=== PATIENT | male | born 1965 | race Caucasian/White ===

== ENCOUNTER 2021-11-29 22:01 | Emergency (ER) | payer SELFPAY ==
--- OUTSIDE RECORDS SUMMARY | 2021-11-29 22:48 | XMS REPORT | Continuity of Care Document ---
:1965 Author Organization [facility] t Address [facility]3 Jose Mendez [address] [place] [address] Care Team Providers Name Role Phone Mindi Campbell Attending Clinician Unavailable Physician, Primary or Family Admitting Clinician Unavailabl e Payers Payer Name Policy Type Policy Number Effective Date Expiration Date S ource Problems This patient has no known problems. Allergies, Adverse Reactions, Alerts Allergy Allergy Status Severity Reaction(s) Onset Inactive Treating Comm ents Source Name Type Date Date Clinician No Known DA Active U [facility]02 [facility] s 00:00: [address] No Known DA Active U 0 [facility] 02-05 [facility] s 00:00: [address] No Known DA Active U [facility] 04-08 [facility] s 00:00: [address] No Known DA Active U [facility] 04-18 [facility] s 00:00: [address] Medications This patient has no known medications. Procedures This patient has no known procedures. Encounters Start End Encounter Admission Attending Care Care Encounter Source Date/Time Date/Time Type Type Clinicians Facility Department ID 2020-09-07 Inpatient [facility] ER [id number] [facility] 02:31:00 [facility] 2020-04-04 Inpatient [facility] ER [id number] [facility] 15:49:00 [id number] [facility] 2020-03-16 Inpatient [facility] ER [id number] [facility] 15:17:00 [facility] 2020-03-02 Inpatient [facility] [id number] [facility] 17:46:00 [id number] [facility] 2020-02-06 Inpatient [facility] [id number] [facility] 11:02:00 [facility] 2019-10-24 Inpatient [facility] [id number] [facility] 17:11:00 [id number] [facility] 2019-10-06 Inpatient [facility] [id number] [facility] 05:44:00 [facility] 2021-11-27 2021-11-27 Emergency EM Adrian, [facility] [id number] [facility] 01:14:00 02:15:00 [place] [id number] [facility] 2021-11-27 2021-11-27 Emergency EM Adrian, [facility] [id number] [facility] 01:14:00 02:15:00 [place] 95 [facility] Results Test Description Test Time Test Comments Results Result [facility] e Comments - XR FINGER(S) 2+V 2021-11-27 LT 01:58:00 [facility] : 1965 Sex: M Patient Name: YESENIA BECKFORD Unit No: [id number] EXAMS: CPT CODE: [id number] XR FINGER(S) 2+[place] [id number] Reason: HAMMER DISTAL FINGERTIP LOCATION: H43 EXAM: - XR FINGER(S) 2+V LT HISTORY: HAMMER DISTAL FINGERTIP TECHNIQUE: Routine 3 view left second finger COMPARISON: None. FINDINGS: Nondisplaced fracture involves the dorsal margin of the tuft of the second distal phalanx. Joint spaces within normal limits. Mild associated soft tissue swelling. Bone marrow mineralization is homogeneous. IMPRESSION: Nondisplaced fracture along the dorsal margin of the tuft of the second distal phalanx. at 0158 Reported and signed by: Trinidad Dawn MD CC: Rena Campbell DO Technologist: Kimberly Barber RT Trscrpt Dt/ ([id number])[email or web address] Orig Print D/T: S: 11/27/2021 (0201) [facility] NAME: YESENIA BECKFORD [address]: [place] [address] : 1965 AGE: 56 SEX: M LOC: [facility] PHONE #: [phone] EXAM DATE: 11/27/2021 STATUS: REG ER FAX #: RAD NO: DC Dt: PAGE 1 Signed Report UA RFLX MICROSCOPIC CULTURE 2020-09-07 08:33:00 Test Item Value Reference Range Interpretation Comme nts UA COLOR (test code = COLU) Light-Yellow YELLOW UA APPEARANCE (test code = APPU) CLEAR CLEAR UA GLUCOSE DIPSTICK (test code = DGLUU) > 1000 mg/dL NEGATIVE A UA BILIRUBIN DIPSTICK (test code = BILU) NEGATIVE NEGATIVE UA KETONE DIPSTICK (test code = KETU) TRACE mg/dL NEGATIVE UA SPECIFIC GRAVITY (test code = SGU) 1.032 1.001-1.035 N UA BLOOD DIPSTICK (test code = LELO) NEGATIVE UA PH DIPSTICK (test code = JENNIE) 5.0 5.5-7.0 L UA PROTEIN DIPSTICK (test code = PROU) NEGATIVE mg/dL NEGATIVE UA UROBILINOGEN DIPSTICK (test code = URO) NORMAL mg/dL NORMAL UA NITRITE DIPSTICK (test code = CECILIA) NEGATIVE NEGATIVE UA LEUKOCYTE ESTERASE DIPSTICK (test code = LEUU) NEGATIVE NEGA TIVE UA COMMENT (test code = COMU) VOLUME 10-12 ML URINE SPECIMEN DESCRIPTION (test code = UASPEC) Clean Catch UA WBC (test code = WBCU) < 10 #/HPF 0-10 UA SQUAMOUS CELLS (test code = SQU) 0 - 20 #/LPF <100 UA CULTURE NEEDED? (test code = UACULT) Criteria not met Indication for culture: RiskForSepsis-no oth srcURINE SOURCE: Clean CatchUA RFLX MICROSCOPIC [id number] 08:30:00 Test Item Value Reference Range Interpretation Comments UA COLOR (test code = COLU) Light-Yellow YELLOW UA APPEARANCE (test code = CLEAR CLEAR APPU) UA GLUCOSE DIPSTICK (test > 1000 mg/dL NEGATIVE A code = DGLUU) UA BILIRUBIN DIPSTICK (test NEGATIVE NEGATIVE code = BILU) UA KETONE DIPSTICK (test TRACE mg/dL NEGATIVE code = KETU) UA SPECIFIC GRAVITY (test 1.032 1.001-1.035 N code = SGU) UA BLOOD DIPSTICK (test code NEGATIVE = LELO) UA PH DIPSTICK (test code = 5.0 5.5-7.0 L JENNIE) UA PROTEIN DIPSTICK (test NEGATIVE mg/dL NEGATIVE code = PROU) UA UROBILINOGEN DIPSTICK NORMAL mg/dL NORMAL (test code = URO) UA NITRITE DIPSTICK (test NEGATIVE NEGATIVE code = CECILIA) UA LEUKOCYTE ESTERASE NEGATIVE NEGATIVE DIPSTICK (test code = LEUU) UA COMMENT (test code = COMU) URINE SPECIMEN DESCRIPTION Clean Catch (test code = UASPEC) UA WBC (test code = WBCU) < 10 #/HPF 0-10 UA SQUAMOUS CELLS (test code 0 - 20 #/LPF <100 = SQU) UA CULTURE NEEDED? 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 Coronavirus 2019 nCoV [id number] 08:07:00 Test Item Value Reference Range Interpretation Comments Coronavirus 2019 nCoV Negative Negative ID NOW COVID-19 assay Bedside (test code = perform ed on the ID NOW [id number]) Instrument shelley rapid molecular in vi tro diagnostic test utilizing aniso thermal nucleic acid amplification t echnology intendedfor the qualitative det ection of nucleic acid fr om dmwFFCM-DvC-3 v iral RNA in direct nasal , nasopharyngeal orthroat swabs and nasal , nasopharyngeal or throat swabseluted in viral transport media from individuals who aresuspected of COVID-19 by their health care provider. Resu lts are for the identif ication of SARS-CoV-2 R NA.For Use Under an Em ergency Use Authorizati on (EUA) Only Negative r esults do not preclude SA RS-CoV-2 infection andsh ould not be used as the sole basis for patie nt managementdecis ions. Negative result s must be combined with clinicalobserva tions, patient history , and epidemiological informati on. DRUG OF ABUSE SCREEN [id number] 07:41:00 Test Item Value Reference Interpretation Comments Range UR COCAINE (test NEGATIVE NEGATIVE code = COCAU) UR MDMA (test code = NEGATIVE NEGATIVE MDMAQLU) UR CANNABINOIDS NEGATIVE NEGATIVE (test code = CANU) UR AMPHETAMINE (test NEGATIVE NEGATIVE code = AMPHU) UR BARBITURATE QUAL NEGATIVE NEGATIVE (test code = BARBQLU) UR BENZODIAZEPINE NEGATIVE NEGATIVE (test code = BENZU) UR OPIATES QUAL NEGATIVE NEGATIVE (test code = OPIAQLU) UR PHENCYCLIDINE NEGATIVE NEGATIVE Urine Drug Abuse Screen (PCP) (test code = provides preliminary PHENCU) results thatmay be confirmed by viki frank methods (i.e., GC[facility]MS) at [facility]. Results of scre en may not be usedin crimi nal justice, job performance or professionalcre dential review, or infa nt custody issues. Negativ e [place] Level ng/ml ------- ----- Cocaine 300 Methamp hetamine (Ecstacy) 500 Cannabinoids (THC) 50 Amphetamine 1000 Barbiturate s 200 Benzodia zepines 200 Opiat es 300 Ph encyclidine (PCP) 25 - XR CHEST 1 [id number] 05:33:00 [facility] : 1965 Sex: M Patient Name: YESENIA BECKFORD Unit No: [id number] EXAMS: CPT CODE: [id number] XR CHEST 1 V [id number] Reason: chest pain PROCEDURE INFORMATION: Exam: XR Chest, 1 View Exam date and time: 09/07/2020 4:06 AM Age: 54 years old Clinical indication: Chest pain TECHNIQUE: Imaging protocol: XRof the chest Views: 1 view. COMPARISON: CR XR CHEST 1 V 03/02/2020 6:19 PM FINDINGS: Lungs: Unremarkable. No consolidation. Pleural space: Unremarkable. No pleural effusion. No pneumothorax. Heart/Mediastinum: Unremarkable. No cardiomegaly.Bones/joints: Unremarkable. IMPRESSION: No acute findings. INTERNAL CODING PURPOSES ONLY RESULT CODE: CVR ElectronicallySigned by Bebe Hussein MD on 09/07/2020 at 0533 Reported and signed by: Bebe Hussein MD CC: Ramesh Ceja MD Technologist: Bernard Dawn RT Trscrpt Dt/ ([id number])[email or web address].VR Orig Print D/T: S: 09/07/2020 (0534) [facility] NAME: YESENIA BECKFORD [address]:[place] [address] : 1965 AGE: 54 SEX: M LOC: [facility] PHONE #: [phone] EXAM DATE: 09/07/2020 STATUS: REG ER FAX #: RAD NO: DC Dt: PAGE 1 Signed ReportBASI METABOLIC [id number] 04:23:00 Test Item Value Reference Range Interpretation Comments SODIUM (test code = 131 MMOL/L 133-145 L NA) POTASSIUM (test code = 3.6 MMOL/L 3.6-5.2 N K) CHLORIDE (test code = 97 MMOL/L 100-108 L CL) CARBON DIOXIDE (test 22 MMOL/L 22-32 N code = CO2) GLUCOSE (test code = 357 MG/DL 65-99 H Results of this assay GLU) method may be f alsely depressed orele vated if patient is t aking sulfasalazine. BLOOD UREA NITROGEN 13 MG/DL 6-20 N (test code = BUN) GLOMERULAR FILTRATION 86 56-130 N Report ing units: RATE (test code = GFR) mL/mi n/1.73m\S\2 (Modified MDRD Formula) CREATININE (test code 0.92 MG/DL 0.60-1.00 N = CREAT) CALCIUM (test code = 9.5 MG/DL 8.7-10.5 N CA) HEPATIC FUNCTION [id number] 04:23:00 Test Item Value Reference Range Interpretation Comments TOTAL PROTEIN (test 7.9 G/DL 6.4-8.2 N code = PROT) ALBUMIN (test code = 4.3 G/DL 3.4-5.0 N ALB) GLOBULIN (test code = 3.6 G/DL 1.5-3.8 N GLOB) ALBUMIN/GLOBULIN RATIO 1.2 1.1-2.2 N (test code = A/G) BILIRUBIN TOTAL (test 0.6 MG/DL 0.0-1.0 N code = BILT) BILIRUBIN DIRECT (test 0.1 MG/DL 0.0-0.3 N code = BILD) BILIRUBIN INDIRECT 0.5 MG/DL 0.0-0.7 N (test code = BILIND) SGOT/AST (test code = 14 Units/L 15-37 L Result s of this assay AST) method may be f alsely depressed orele vated if patient is t aking sulfasalazine. SGPT/ALT (test code = 44 Units/L 30-65 N Result s of this assay ALT) method may be f alsely depressed orele vated if patient is t aking sulfasalazine. ALKALINE PHOSPHATASE 82 Units/L 50-136 N TOTAL (test code = ALKP) [id number] 04:23:00 Test Item Value Reference Range Interpretation Comments LIPASE (test code = LIP) 183 Units/L 73-393 N [id number] 04:23:00 Test Item Value Reference Range Interpretation Comments MAGNESIUM (test code = MAG) 1.9 MG/DL 1.8-2.4 N THYROID STIMULATING [id number] 04:23:00 Test Item Value Reference Range Interpretation Comments THYROID STIMULATING 5.20 0.42-5.47 N Micro-In ternational HORMONE (test code = TSH) Un its/LResults of this assay method ma y be falsely depress ed orelevated if p atient is taking high doses of Biotin. NT PRO-BRAIN NATRIURETIC [id number] 04:23:00 Test Item Value Reference Range Interpretation Comments NT PRO-BRAIN 40 PG/ML 0-125 N Results of this assay NATRIURETIC PEPTI (test meth od may be falsely code = PROBNP) depressed ore levated if patient is t aking high doses of B iotin. CPK-MB [id number] 04:23:00 Test Item Value Reference Range Interpretation Comments CK (test code = 239 Units/L 39-308 N CKT) CKMB (test code = 2.8 NG/ML 0.0-3.6 N CKMB sugge stive of CKMBT) non-AMI; MB Ind ex is not reported. [id number] 04:23:00 Test Item Value Reference Range Interpretation Comments TROPONIN-I (test < 0.04 NG/ML 0.00-0.06 N - The use of serial code = TROPI) sampling and t esting protocol is a recommended pra ctice.- An elevated tro ponin level alone is often not sufficient fo r diagnosis of my ocardial infarction.Resu lts of this assay meth od may be falsely depress ed orelevated if p atient is taking high dos es of Biotin. [id number] 04:23:00 Test Item Value Reference Range Interpretation Comments ALCOHOL (test code = 95 MG/DL 0-10 H 0 - 10: Should be ALC) interpreted as NEGATIVE. 11 - 50: None to mild euphoria. 51 - 100: Mild influence on vision and dark adapta tion. > 80: Legal intoxication; D epression of BEAN SNAPPER; Increasing degr ee of poisoning. > 400: Fatalities repo rted. Results are for medical purposes only a nd not forlegal or emp loyment evaluative purp oses. CBC W/AUTO [id number] 03:53:00 Test Item Value Reference Range Interpretation Comments WHITE BLOOD CELL (test code = 5.93 x10 3/uL 4.80-10.80 N WBC) RED BLOOD CELL (test code = 5.21 x10 6/uL 4.7-6.1 N RBC) HEMOGLOBIN (test code = HGB) 17.0 G/DL 14.0-17.0 N HEMATOCRIT (test code = HCT) 46.9 % 42-52 N MEAN CELL VOLUME (test code = 90.0 FL 80-94 N MCV) MEAN CELL HGB (test code = MCH) 32.6 PG 27-31 H MEAN CELL HGB CONCENTRATION 36.2 G/DL 33-37 N (test code = MCHC) RED CELL DISTRIBUTION WIDTH 11.9 % 11.5-14.5 N (test code = RDW) PLATELET COUNT (test code = 287 x10 3/uL 150-450 N PLT) MEAN PLATELET VOLUME (test code 9.3 FL 7.4-10.4 N = MPV) NEUTROPHIL % (test code = NT%) 42.6 % 42-86 N IMMATURE GRANULOCYTE % (test 0.3 % 0.0-2.0 N code = IG%) LYMPHOCYTE % (test code = LY%) 40.0 % 24-44 N MONOCYTE % (test code = MO%) 7.8 % 0.0-4.0 H EOSINOPHIL % (test code = EO%) 9.1 % 0.0-2.7 H BASOPHIL % (test code = BA%) 0.2 % 0.0-0.5 N NUCLEATED RBC % (test code = 0.0 % 0.0-0.0 N NRBC%) NEUTROPHIL # (test code = NT#) 2.53 x10 3/uL 1.8-7.7 N IMMATURE GRANULOCYTE # (test 0.02 x10 3/uL 0.00-0.03 N code = IG#) LYMPHOCYTE # (test code = LY#) 2.37 x10 3/uL 1.0-4.8 N MONOCYTE # (test code = MO#) 0.46 x10 3/uL 0.0-0.8 N EOSINOPHIL # (test code = EO#) 0.54 x10 3/uL 0.0-0.5 H BASOPHIL # (test code = BA#) 0.01 x10 3/uL 0.0-0.2 N NUCLEATED RBC # (test code = 0.0 X10 3/uL 0.0-0.2 N NRBC#) [id number] 03:34:00 Test Item Value Reference Range Interpretation Comments GLUBED (test code = 346 MG/DL 65-99 H 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 DRUG OF ABUSE SCREEN [id number] 21:43:00 Test Item Value Reference Interpretation Comments Range UR COCAINE (test NEGATIVE NEGATIVE code = COCAU) UR MDMA (test code = NEGATIVE NEGATIVE MDMAQLU) UR CANNABINOIDS NEGATIVE NEGATIVE (test code = CANU) UR AMPHETAMINE (test NEGATIVE NEGATIVE code = AMPHU) UR BARBITURATE QUAL NEGATIVE NEGATIVE (test code = BARBQLU) UR BENZODIAZEPINE NEGATIVE NEGATIVE (test code = BENZU) UR OPIATES QUAL NEGATIVE NEGATIVE (test code = OPIAQLU) UR PHENCYCLIDINE NEGATIVE NEGATIVE Urine Drug Abuse Screen (PCP) (test code = provides preliminary PHENCU) results thatmay be confirmed by viki frank methods (i.e., GC/MS) at [facility]. Results of scre en may not be usedin crimi nal justice, job performance or professionalcre dential review, or infa nt custody issues. Negativ e [place] Level ng/ml ------- ----- Cocaine 300 Methamp hetamine (Ecstacy) 500 Cannabinoids (THC) 50 Amphetamine 1000 Barbiturate s 200 Benzodia zepines 200 Opiat es 300 Ph encyclidine (PCP) 25 [id number] 21:34:00 Test Item Value Reference Range Interpretation Comments AMMONIA (test code = 24 UMOL/L 11-35 N Results of this assay AMM) method may be f alsely depressed orele vated if patient is taki ng sulfasalazine. BETA [id number] 20:37:00 Test Item Value Reference Range Interpretation Comments BETA HYDROXYBUTYRATE (test code = 0.33 mmol/L 0.02-0.27 H BETHYD) - CT HEAD/BRAIN W/O [id number] 20:25:00 Patient Name: YESENIA BECKFORD Unit No: [id number] EXAMS: CPT CODE: [id number] CT HEAD/BRAIN W/O CONT [id number] Reason: aguilar - CT HEAD/BRAIN W/O CONT 03/02/2020 7:35 PM Indication: Headache COMPARISON: 10/24/2019 FINDINGS: Noncontrast scanning shows no acute process nor adverse change. Normal ventricles. No intracranial hemorrhage. Stable right mastoid sinus sclerosis and opacified air cells with partial air-fluid level. Going back to the anal 1216 study, the right mastoids look the same.Impression: No acute disease nor adverse change. at 2024 Reported and signed by: Lopez Fraga MD CC: Adarsh Enriquez MD Technologist: Sarita Marcelo RT PRN Trscrpt Dt/ (2024)[email or web address] Orig Print D/T: S: 03/02/2020 (2027) CTDI: DLP: [facility] NAME: YESENIA BECKFORD [address]: [place] [address] : 1965 AGE: 54 SEX: M LOC: [facility] PHONE #: [phone] EXAM DATE: 03/02/2020 STATUS: REG ER FAX #: RAD NO: DC Dt: PAGE 1 Signed ReportCOMPREHENSIVE METABOLIC PANEL 2020-03-02 20:14:00 Test Item Value Reference Range Interpretation Comments SODIUM (test code = 137 MMOL/L 133-145 N NA) POTASSIUM (test code = 3.9 MMOL/L 3.6-5.2 N K) CHLORIDE (test code = 99 MMOL/L 100-108 L CL) CARBON DIOXIDE (test 27 MMOL/L 22-32 N code = CO2) GLUCOSE (test code = 192 MG/DL 65-99 H Results of this assay GLU) method may be f alsely depressed orele vated if patient is t aking sulfasalazine. BLOOD UREA NITROGEN 12 MG/DL 6-20 N (test code = BUN) GLOMERULAR FILTRATION 82 56-130 N Report ing units: RATE (test code = GFR) mL/mi n/1.73m\S\2 (Modified MDRD Formula) CREATININE (test code 0.96 MG/DL 0.60-1.00 N = CREAT) TOTAL PROTEIN (test 7.6 G/DL 6.4-8.2 N code = PROT) ALBUMIN (test code = 4.2 G/DL 3.4-5.0 N ALB) GLOBULIN (test code = 3.4 G/DL 1.5-3.8 N GLOB) ALBUMIN/GLOBULIN RATIO 1.2 1.1-2.2 N (test code = A/G) CALCIUM (test code = 9.3 MG/DL 8.7-10.5 N CA) BILIRUBIN TOTAL (test 0.8 MG/DL 0.0-1.0 N code = BILT) SGOT/AST (test code = 20 Units/L 15-37 N Result s of this assay AST) method may be f alsely depressed orele vated if patient is t aking sulfasalazine. SGPT/ALT (test code = 39 Units/L 30-65 N Result s of this assay ALT) method may be f alsely depressed orele vated if patient is t aking sulfasalazine. ALKALINE PHOSPHATASE 76 Units/L 50-136 N TOTAL (test code = ALKP) [id number] 20:14:00 Test Item Value Reference Range Interpretation Comments PHOSPHOROUS (test code = PHOS) 2.9 MG/DL 2.5-4.9 N [id number] 20:14:00 Test Item Value Reference Range Interpretation Comments MAGNESIUM (test code = MAG) 2.0 MG/DL 1.8-2.4 N [id number] 20:14:00 Test Item Value Reference Range Interpretation Comments TROPONIN-I (test < 0.04 NG/ML 0.00-0.06 N - The use of serial code = TROPI) sampling and t esting protocol is a recommended pra ctice.- An elevated tro ponin level alone is often not sufficient fo r diagnosis of my ocardial infarction.Resu lts of this assay meth od may be falsely depress ed orelevated if p atient is taking high dos es of Biotin. [id number] 20:14:00 Test Item Value Reference Range Interpretation Comments ALCOHOL (test code = < 3 MG/DL 0-10 N 0 - 10: Should be ALC) interpreted as NEGATIVE. 11 - 50: None to mild euphoria. 51 - 100: Mild influence on vision and dark adapta tion. > 80: Legal intoxication; D epression of BEAN SNAPPER; Increasing degr ee of poisoning. > 400: Fatalities repo rted. Results are for medical purposes only a nd not forlegal or emp loyment evaluative purp oses. CBC W/AUTO [id number] 19:01:00 Test Item Value Reference Range Interpretation Comments WHITE BLOOD CELL (test code = 5.48 x10 3/uL 4.80-10.80 N WBC) RED BLOOD CELL (test code = 5.12 x10 6/uL 4.7-6.1 N RBC) HEMOGLOBIN (test code = HGB) 16.4 G/DL 14.0-17.0 N HEMATOCRIT (test code = HCT) 45.1 % 42-52 N MEAN CELL VOLUME (test code = 88.1 FL 80-94 N MCV) MEAN CELL HGB (test code = MCH) 32.0 PG 27-31 H MEAN CELL HGB CONCENTRATION 36.4 G/DL 33-37 N (test code = MCHC) RED CELL DISTRIBUTION WIDTH 12.6 % 11.5-14.5 N (test code = RDW) PLATELET COUNT (test code = 232 x10 3/uL 150-450 N PLT) MEAN PLATELET VOLUME (test code 9.2 FL 7.4-10.4 N = MPV) NEUTROPHIL % (test code = NT%) 73.6 % 42-86 N IMMATURE GRANULOCYTE % (test 0.4 % 0.0-2.0 N code = IG%) LYMPHOCYTE % (test code = LY%) 8.4 % 24-44 L MONOCYTE % (test code = MO%) 13.9 % 0.0-4.0 H EOSINOPHIL % (test code = EO%) 3.3 % 0.0-2.7 H BASOPHIL % (test code = BA%) 0.4 % 0.0-0.5 N NUCLEATED RBC % (test code = 0.0 % 0.0-0.0 N NRBC%) NEUTROPHIL # (test code = NT#) 4.04 x10 3/uL 1.8-7.7 N IMMATURE GRANULOCYTE # (test 0.02 x10 3/uL 0.00-0.03 N code = IG#) LYMPHOCYTE # (test code = LY#) 0.46 x10 3/uL 1.0-4.8 L MONOCYTE # (test code = MO#) 0.76 x10 3/uL 0.0-0.8 N EOSINOPHIL # (test code = EO#) 0.18 x10 3/uL 0.0-0.5 N BASOPHIL # (test code = BA#) 0.02 x10 3/uL 0.0-0.2 N NUCLEATED RBC # (test code = 0.0 X10 3/uL 0.0-0.2 N NRBC#) - XR CHEST 1 [id number] 18:53:00 Patient Name: YESENIA BECKFORD Unit No: [id number] EXAMS: CPT CODE: [id number] XR CHEST 1 V [id number] Reason: weakness - XR CHEST 1 V 03/02/2020 6:17 PM Indication: Weakness FINDINGS: Comparison is made to the films of 06/07/2018. There has been no significant radiographic change. The heart, lung dempsey and pleura show no change since the prior examination. Cervical fusion. IMPRESSION: Stable chest. 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 COMPREHENSIVE METABOLIC [id number] 18:26:00 Test Item Value Reference Range Interpretation Comments SODIUM (test code = 138 MMOL/L 133-145 N NA) POTASSIUM (test code = 4.0 MMOL/L 3.6-5.2 N K) CHLORIDE (test code = 104 MMOL/L 100-108 N CL) CARBON DIOXIDE (test 26 MMOL/L 22-32 N code = CO2) GLUCOSE (test code = 116 MG/DL 65-99 H Results of this assay GLU) method may be f alsely depressed orele vated if patient is t aking sulfasalazine. BLOOD UREA NITROGEN 16 MG/DL 6-20 N (test code = BUN) GLOMERULAR FILTRATION 93 56-130 N Report ing units: RATE (test code = GFR) mL/mi n/1.73m\S\2 (Modified MDRD Formula) CREATININE (test code 0.87 MG/DL 0.60-1.00 N = CREAT) TOTAL PROTEIN (test 7.5 G/DL 6.4-8.2 N code = PROT) ALBUMIN (test code = 4.2 G/DL 3.4-5.0 N ALB) GLOBULIN (test code = 3.3 G/DL 1.5-3.8 N GLOB) ALBUMIN/GLOBULIN RATIO 1.3 1.1-2.2 N (test code = A/G) CALCIUM (test code = 9.1 MG/DL 8.7-10.5 N CA) BILIRUBIN TOTAL (test 1.0 MG/DL 0.0-1.0 N code = BILT) SGOT/AST (test code = 19 Units/L 15-37 N Result s of this assay AST) method may be f alsely depressed orele vated if patient is t aking sulfasalazine. SGPT/ALT (test code = 35 Units/L 30-65 N Result s of this assay ALT) method may be f alsely depressed orele vated if patient is t aking sulfasalazine. ALKALINE PHOSPHATASE 64 Units/L 50-136 N TOTAL (test code = ALKP) [id number] 18:22:00 Test Item Value Reference Range Interpretation Comments AMMONIA (test code = 39 UMOL/L 11-35 H Results of this assay AMM) method may be f alsely depressed orele vated if patient is taki ng sulfasalazine. - CT HEAD/BRAIN W/O [id number] 18:19:00 Patient Name: YESENIA BECKFORD Unit No: [id number] EXAMS: CPT CODE: [id number] CT HEAD/BRAIN W/O CONT [id number] Reason: Headache TECHNIQUE: Contiguous 5 mm images were obtained throughbrain. No contrast was given. FINDINGS: The ventricles are normal in size and configuration. There is no intracranial hemorrhage, mass effect or abnormal extra-axial fluid collection. There are no focal attenuation abnormalities within the brain parenchyma. Bone targeted windows are unremarkable. IMPRESSION: Negative at 1819 Reported and signed by: Marco Mora MD CC: Maximiliano Jimenez DO Technologist: Mc Mims RT Trscrpt Dt/ (1818)[email or web address].DKW Orig Print D/T: S: 10/24/2019 (1821) CTDI: DLP: [facility] NAME: YESENIA BECKFORD [address] PHYS: [place] [address] : 1965 AGE: 53 SEX: M LOC: [facility]ARD PHONE#: [phone] EXAM DATE: 10/24/2019 STATUS: REG ER FAX #: RAD NO: DC Dt: PAGE 1 Signed ReportCBC W/AUTO [id number] 18:10:00 Test Item Value Reference Range Interpretation Comments WHITE BLOOD CELL (test code = 6.84 x10 3/uL 4.80-10.80 N WBC) RED BLOOD CELL (test code = 4.99 x10 6/uL 4.7-6.1 N RBC) HEMOGLOBIN (test code = HGB) 15.8 G/DL 14.0-17.0 N HEMATOCRIT (test code = HCT) 44.3 % 42-52 N MEAN CELL VOLUME (test code = 88.8 FL 80-94 N MCV) MEAN CELL HGB (test code = MCH) 31.7 PG 27-31 H MEAN CELL HGB CONCENTRATION 35.7 G/DL 33-37 N (test code = MCHC) RED CELL DISTRIBUTION WIDTH 12.6 % 11.5-14.5 N (test code = RDW) PLATELET COUNT (test code = 289 x10 3/uL 150-450 N PLT) MEAN PLATELET VOLUME (test code 8.6 FL 7.4-10.4 N = MPV) NEUTROPHIL % (test code = NT%) 59.3 % 42-86 N IMMATURE GRANULOCYTE % (test 0.1 % 0.0-2.0 N code = IG%) LYMPHOCYTE % (test code = LY%) 25.7 % 24-44 N MONOCYTE % (test code = MO%) 7.9 % 0.0-4.0 H EOSINOPHIL % (test code = EO%) 6.6 % 0.0-2.7 H BASOPHIL % (test code = BA%) 0.4 % 0.0-0.5 N NUCLEATED RBC % (test code = 0.0 % 0.0-0.0 N NRBC%) NEUTROPHIL # (test code = NT#) 4.05 x10 3/uL 1.8-7.7 N IMMATURE GRANULOCYTE # (test 0.01 x10 3/uL 0.00-0.03 N code = IG#) LYMPHOCYTE # (test code = LY#) 1.76 x10 3/uL 1.0-4.8 N MONOCYTE # (test code = MO#) 0.54 x10 3/uL 0.0-0.8 N EOSINOPHIL # (test code = EO#) 0.45 x10 3/uL 0.0-0.5 N BASOPHIL # (test code = BA#) 0.03 x10 3/uL 0.0-0.2 N NUCLEATED RBC # (test code = 0.0 X10 3/uL 0.0-0.2 N NRBC#) [id number] 18:08:00 Test Item Value Reference Range Interpretation Comments GLUBED (test code = 106 MG/DL 65-99 H 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 - XR FINGER(S) 2+V [id number] 06:53:00 Patient Name: YESENIA BECKFORD Unit No: [id number] EXAMS: CPT CODE: [id number] XR FINGER(S) 2+[place] [address] Reason: pain, injury PROCEDURE INFORMATION: Exam: XR Left Finger(s) Exam date and time: 10/06/2019 6:19 AM Age: 53 years old Clinical indication: Pain; Finger(s); Left; Additional info: Pain, injuryTECHNIQUE: Imaging protocol: XR Left fingers. Views: Minimum 2 views. COMPARISON: CR XR HAND 3+V LT 02/27/2016 7:10 AM FINDINGS: Bones/joints: Sm all nondisplaced fracture at the base of the 1st proximal phalanx medially. Soft tissues: No acute findings. IMPRESSION: Small nondisplaced fracture at the base of the 1st proximal phalanx medially. Suggesting ulnar collateral ligament avulsion. Consider orthopedic hand consult at 0653 Reported and signed by: Vinicius Light CC: Shayne Nelson DO Technologist: Kym Shrestha RT Trscrpt Dt/ (0653)[email or web address].[email or web address] Rouse Print D/T: S: 10/06/2019 (0653) [facility] NAME: YESENIA BECKFORD [address] [facility] PHYS: [email or web address] [place] [address] : 1965 AGE:53 SEX: M LOC: TiffanyPORFIRIOR PHONE #: [phone] EXAM DATE: 10/06/2019 STATUS: DEP ER FAX #: RAD NO: DC Dt: PAGE 1 Signed Report- XR L-SPINE 2/3 VIEWS 2019-10-06 06:45:00 Patient Name: YESENIA BECKFORD Unit No: [id number] EXAMS: CPT CODE: [id number] XR L-SPINE 2/3 VIEWS 70115 Reason: pain PROCEDURE INFORMATION: Exam: XR Lumbosacral Spine, 2 or 3 Views Exam date and time: 10/06/2019 6:19 AM Age: 53 years old Clinical indication: Low back pain TECHNIQUE: Imaging protocol: XR of the lumbosacral spine, 2 or 3 views. COMPARISON: No relevant prior studies available. FINDINGS: Vertebrae: No acute fracture. Soft tissues: No acute abnormality. IMPRESSION: Unremarkable radiograph. 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 UA RFLX MICROSCOPIC [id number] 07:43:00 Test Item Value Reference Range Interpretation Comments UA COLOR (test code = COLU) Colorless YELLOW UA APPEARANCE (test code = CLEAR CLEAR APPU) UA GLUCOSE DIPSTICK (test > 1000 mg/dL NEGATIVE A code = DGLUU) UA BILIRUBIN DIPSTICK (test NEGATIVE NEGATIVE code = BILU) UA KETONE DIPSTICK (test NEGATIVE mg/dL NEGATIVE code = KETU) UA SPECIFIC GRAVITY (test 1.027 1.001-1.035 N code = SGU) UA BLOOD DIPSTICK (test code NEGATIVE = LELO) UA PH DIPSTICK (test code = 6.5 5.5-7.0 N JENNIE) UA PROTEIN DIPSTICK (test NEGATIVE mg/dL NEGATIVE code = PROU) UA UROBILINOGEN DIPSTICK NORMAL mg/dL NORMAL (test code = URO) UA NITRITE DIPSTICK (test NEGATIVE NEGATIVE code = CECILIA) UA LEUKOCYTE ESTERASE NEGATIVE NEGATIVE DIPSTICK (test code = LEUU) UA COMMENT (test code = VOLUME 10-12 ML COMU) URINE SPECIMEN DESCRIPTION Clean Catch (test code = UASPEC) UA WBC (test code = WBCU) < 10 #/HPF 0-10 UA SQUAMOUS CELLS (test code 0 - 20 #/LPF <100 = SQU) UA CULTURE NEEDED? (test Criteria not met code = UACULT) Indication for culture: Dysuria/FrequencyURINE SOURCE: Clean CatchBASIC METABOLIC [id number] 07:24:00 Test Item Value Reference Range Interpretation Comments SODIUM (test code = 140 MMOL/L 133-145 N NA) POTASSIUM (test code = 4.1 MMOL/L 3.6-5.2 N K) CHLORIDE (test code = 106 MMOL/L 100-108 N CL) CARBON DIOXIDE (test 25 MMOL/L 22-32 N code = CO2) GLUCOSE (test code = 283 MG/DL 65-99 H Results of this assay GLU) method may be f alsely depressed orele vated if patient is t aking sulfasalazine. BLOOD UREA NITROGEN 19 MG/DL 6-20 N (test code = BUN) GLOMERULAR FILTRATION 99 56-130 N Report ing units: RATE (test code = GFR) mL/mi n/1.73m\S\2 (Modified MDRD Formula) CREATININE (test code 0.82 MG/DL 0.60-1.00 N = CREAT) CALCIUM (test code = 9.6 MG/DL 8.7-10.5 N CA) HEPATIC FUNCTION [id number] 07:24:00 Test Item Value Reference Range Interpretation Comments TOTAL PROTEIN (test 7.2 G/DL 6.4-8.2 N code = PROT) ALBUMIN (test code = 4.1 G/DL 3.4-5.0 N ALB) GLOBULIN (test code = 3.1 G/DL 1.5-3.8 N GLOB) ALBUMIN/GLOBULIN RATIO 1.3 1.1-2.2 N (test code = A/G) BILIRUBIN TOTAL (test 0.7 MG/DL 0.0-1.0 N code = BILT) BILIRUBIN DIRECT (test 0.1 MG/DL 0.0-0.3 N code = BILD) BILIRUBIN INDIRECT 0.6 MG/DL 0.0-0.7 N (test code = BILIND) SGOT/AST (test code = 12 Units/L 15-37 L Result s of this assay AST) method may be f alsely depressed orele vated if patient is t aking sulfasalazine. SGPT/ALT (test code = 41 Units/L 30-65 N Result s of this assay ALT) method may be f alsely depressed orele vated if patient is t aking sulfasalazine. ALKALINE PHOSPHATASE 87 Units/L 50-136 N TOTAL (test code = ALKP) [id number] 07:24:00 Test Item Value Reference Range Interpretation Comments LIPASE (test code = LIP) 165 Units/L 73-393 N CBC W/AUTO [id number] 07:05:00 Test Item Value Reference Range Interpretation Comments WHITE BLOOD CELL (test code = 9.17 x10 3/uL 4.80-10.80 N WBC) RED BLOOD CELL (test code = 5.18 x10 6/uL 4.7-6.1 N RBC) HEMOGLOBIN (test code = HGB) 16.3 G/DL 14.0-17.0 N HEMATOCRIT (test code = HCT) 47.1 % 42-52 N MEAN CELL VOLUME (test code = 90.9 FL 80-94 N MCV) MEAN CELL HGB (test code = MCH) 31.5 PG 27-31 H MEAN CELL HGB CONCENTRATION 34.6 G/DL 33-37 N (test code = MCHC) RED CELL DISTRIBUTION WIDTH 12.6 % 11.5-14.5 N (test code = RDW) PLATELET COUNT (test code = 251 x10 3/uL 150-450 N PLT) MEAN PLATELET VOLUME (test code 9.5 FL 7.4-10.4 N = MPV) NEUTROPHIL % (test code = NT%) 61.7 % 42-86 N IMMATURE GRANULOCYTE % (test 0.3 % 0.0-2.0 N code = IG%) LYMPHOCYTE % (test code = LY%) 20.7 % 24-44 L MONOCYTE % (test code = MO%) 8.5 % 0.0-4.0 H EOSINOPHIL % (test code = EO%) 8.4 % 0.0-2.7 H BASOPHIL % (test code = BA%) 0.4 % 0.0-0.5 N NUCLEATED RBC % (test code = 0.0 % 0.0-0.0 N NRBC%) NEUTROPHIL # (test code = NT#) 5.65 x10 3/uL 1.8-7.7 N IMMATURE GRANULOCYTE # (test 0.03 x10 3/uL 0.00-0.03 N code = IG#) LYMPHOCYTE # (test code = LY#) 1.90 x10 3/uL 1.0-4.8 N MONOCYTE # (test code = MO#) 0.78 x10 3/uL 0.0-0.8 N EOSINOPHIL # (test code = EO#) 0.77 x10 3/uL 0.0-0.5 H BASOPHIL # (test code = BA#) 0.04 x10 3/uL 0.0-0.2 N NUCLEATED RBC # (test code = 0.0 X10 3/uL 0.0-0.2 N NRBC#) UA RFLX MICROSCOPIC [id number] 02:01:00 Test Item Value Reference Range Interpretation Comments UA COLOR (test code = COLU) Colorless YELLOW UA APPEARANCE (test code = CLEAR CLEAR APPU) UA GLUCOSE DIPSTICK (test > 1000 mg/dL NEGATIVE A code = DGLUU) UA BILIRUBIN DIPSTICK (test NEGATIVE NEGATIVE code = BILU) UA KETONE DIPSTICK (test NEGATIVE mg/dL NEGATIVE code = KETU) UA SPECIFIC GRAVITY (test 1.023 1.001-1.035 N code = SGU) UA BLOOD DIPSTICK (test code NEGATIVE = LELO) UA PH DIPSTICK (test code = 7.0 5.5-7.0 N JENNIE) UA PROTEIN DIPSTICK (test NEGATIVE mg/dL NEGATIVE code = PROU) UA UROBILINOGEN DIPSTICK NORMAL mg/dL NORMAL (test code = URO) UA NITRITE DIPSTICK (test NEGATIVE NEGATIVE code = CECILIA) UA LEUKOCYTE ESTERASE NEGATIVE NEGATIVE DIPSTICK (test code = LEUU) UA COMMENT (test code = VOLUME 10-12 ML COMU) URINE SPECIMEN DESCRIPTION Clean Catch (test code = UASPEC) UA WBC (test code = WBCU) < 10 #/HPF 0-10 UA SQUAMOUS CELLS (test code 0 - 20 #/LPF <100 = SQU) UA CULTURE NEEDED? (test Criteria not met code = UACULT) Indication for culture: Suprapubic PainURINE SOURCE: Clean CatchUA RFLX MICROSCOPIC [id number] 01:57:00 Test Item Value Reference Range Interpretation Comments UA COLOR (test code = COLU) Colorless YELLOW UA APPEARANCE (test code = CLEAR CLEAR APPU) UA GLUCOSE DIPSTICK (test > 1000 mg/dL NEGATIVE A code = DGLUU) UA BILIRUBIN DIPSTICK (test NEGATIVE NEGATIVE code = BILU) UA KETONE DIPSTICK (test code NEGATIVE mg/dL NEGATIVE = KETU) UA SPECIFIC GRAVITY (test 1.023 1.001-1.035 N code = SGU) UA BLOOD DIPSTICK (test code NEGATIVE = LELO) UA PH DIPSTICK (test code = 7.0 5.5-7.0 N JENNIE) UA PROTEIN DIPSTICK (test NEGATIVE mg/dL NEGATIVE code = PROU) UA UROBILINOGEN DIPSTICK NORMAL mg/dL NORMAL (test code = URO) UA NITRITE DIPSTICK (test NEGATIVE NEGATIVE code = CECILIA) UA LEUKOCYTE ESTERASE NEGATIVE NEGATIVE DIPSTICK (test code = LEUU) UA COMMENT (test code = COMU) VOLUME 10-12 ML URINE SPECIMEN DESCRIPTION Clean Catch (test code = UASPEC) UA WBC (test code = WBCU) #/hpf <10 UA SQUAMOUS CELLS (test code #/lpf <100 = SQU) UA CULTURE NEEDED? 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
[2021-11-29] MEDS ORDERED: BUPIVACAINE 0.5% PF 10 ML VIAL ONE (23:24)
--- NOTE | 2021-11-29 23:59 | ER ---
Nurse's Notes [facility] Name: Trenton Velasquez Age: 56 yrs Sex: Male : 1965 Arrival Date: 11/29/2021 Time: 22:03 Bed 14 Private MD: Diagnosis: Subungual hematoma Presentation: 11/29 22:06 Chief complaint: Patient states: left index finger last week, treatment from PCP x 1. [place] Coronavirus screen: Vaccine status: Patient reports receiving the 2nd dose of the covid vaccine. Ebola Screen: Patient negative for fever greater than or equal to 101.5 degrees Fahrenheit, and additional compatible Ebola Virus Disease symptoms Patient denies exposure to infectious person. Patient denies travel to an Ebola-affected area in the 21 days before illness onset. Initial Sepsis Screen: Does the patient meet any 2 criteria? No. Patient's initial sepsis screen is negative. Does the patient have a suspected source of infection? No. Patient's initial sepsis screen is negative. Risk Assessment: Do you want to hurt yourself or someone else? Patient reports no desire to harm self or others. Onset of symptoms was November 21, 2021. 22:06 Method Of Arrival: Ambulatory [place] 22:06 Acuity: GIOVANNA 4 [place] Triage Assessment: 22:16 General: Appears in no apparent distress. comfortable, Behavior is calm, cooperative. [place] Pain: Complains of pain in left hand. Musculoskeletal: previous injury and drained by Dr. Campbell a few days ago. Historical: - Allergies: 22:14 No Known Allergies; [place] - Home Meds: 22:14 Metformin Oral [Active]; [place] - PMHx: 22:14 Diabetes mellitus; [place] - PSHx: 22:14 None; [place] - Immunization history:: Client reports receiving the 2nd dose of the Covid vaccine. - Social history:: Smoking status: Patient denies any tobacco usage or history of. Patient/guardian denies using alcohol, street drugs. Screenin:52 Abuse screen: Denies threats or abuse. Nutritional screening: No deficits noted. bp Tuberculosis screening: No symptoms or risk factors identified. Fall Risk None identified. Assessment: 11/30 00:08 Reassessment: The patient's wound was treated by the provider . Cleared for discharge. .bp Vital Signs: 11/29 22:06 BP 151 / 90; Pulse 84; Resp 18; Temp 98.5; Pulse Ox 100% ; Weight 86.18 kg; Height 5 juan diego ft. 11 in. (180.34 cm); Pain 8/10; 22:17 BP 151 / 90; Pulse 84; Resp 18; Temp 98.5; Pulse Ox 100% on R/A; Pain 8/10; [place] 22:52 BP 135 / 82 RA Supine (auto/reg); Pulse 77 MON; Resp 16 S; Pulse Ox 98% on R/A; bp 11/30 00:07 BP 146 / 86 RA Supine (auto/reg); Pulse 74 MON; Resp 18 S; Pulse Ox 99% on R/A; Pain bp 2/10; 11/29 22:06 Body Mass Index 26.50 (86.18 kg, 180.34 cm) [place] ED Course: 11/29 22:03 Patient arrived in ED. kc5 22:14 Triage completed. [place] 22:18 Arm band placed on left wrist. [place] 22:28 Oz Shrestha DO is Attending Physician. ms3 22:46 Stephen Stephenson, RN is Primary Nurse. bp 22:52 Patient has correct armband on for positive identification. Bed in low position. Call bp light in reach. Side rails up X 1. 22:52 No provider procedures requiring assistance completed. bp 23:04 Nikolai Rodarte PA is PHCP. [facility] 23:04 Oz Shrestha DO is Attending Physician. [facility] 11/30 00:08 Patient did not have IV access during this emergency room visit. bp Administered Medications: 11/29 23:42 Drug: Marcaine (bupivacaine) (0.5 %) 10 ml Volume: 10 ml; Route: Infiltration; bp Outcome: 23:59 Discharge ordered by . kareem 11/30 00:08 Discharged to home ambulatory. bp Condition: good Discharge instructions given to patient. 00:10 Patient left the ED. bp Signatures: Nikolai Rodarte PA PA jmm Peltier, Brian, RN RN bp Oz Shrestha DO DO ms3 Cynthia Mcwilliams kc5 Lore Thompson RN RN [place]an [place]go
--- NOTE | 2021-11-29 23:59 | EDPHYS ---
Physician Documentation [facility] Name: Trenton Velasquez Age: 56 yrs Sex: Male : 1965 Arrival Date: 11/29/2021 Time: 22:03 Bed 14 Private MD: ED Physician Oz Shrestha HPI: 11/29 23:13 This 56 yrs old Male presents to ER via Ambulatory with complaints of Finger Injury. jmm 23:13 The patient or guardian reports injury. Onset: The symptoms/episode began/occurred jmm acutely, 1 week(s) ago. Modifying factors: The symptoms are alleviated by nothing, the symptoms are aggravated by nothing. Is a 57-year-old male with history of diabetes mellitus the presents emerged department with swelling to his left index finger. This initially occurred when he hit his finger. He went to his PCP whom drained a pocket of blood underneath his nail. Patient states that the blood is returned, complains of throbbing to the finger, denies fever, denies purulent drainage.. Historical: - Allergies: 22:14 No Known Allergies; [place] - Home Meds: 22:14 Metformin Oral [Active]; [place]go - PMHx: 22:14 Diabetes mellitus; [place] - PSHx: 22:14 None; [place] - Immunization history:: Client reports receiving the 2nd dose of the Covid vaccine. - Social history:: Smoking status: Patient denies any tobacco usage or history of. Patient/guardian denies using alcohol, street drugs. ROS: 23:13 Constitutional: Negative for fever, chills, and weight loss, Cardiovascular: Negative jmm for chest pain, palpitations, and edema, Respiratory: Negative for shortness of breath, cough, wheezing, and pleuritic chest pain. 23:13 MS/extremity: Positive for injury or acute deformity. 23:13 All other systems are negative. Exam: 23:13 Constitutional: This is a well developed, well nourished patient who is awake, alert, jmm and in no acute distress. Head/Face: atraumatic. Eyes: EOMI, no conjunctival erythema appreciated ENT: Moist Mucus Membranes Neck: Trachea midline, Supple Chest/axilla: Normal chest wall appearance and motion. Cardiovascular: Regular rate and rhythm. No edema appreciated Respiratory: Normal respirations, no respiratory distress appreciated Abdomen/GI: Non distended, soft Skin: General appearance color normal 23:13 Musculoskeletal/extremity: Subungual hematoma noted to the left index finger, there is some surrounding swelling to the cuticle region, no erythema or purulent drainage appreciated. 23:13 Skin: Appearance: Color: normal in color. 23:13 Neuro: Orientation: is normal, Mentation: is normal, Memory: is normal. 23:13 Psych: Behavior/mood is pleasant, cooperative. Vital Signs: 22:06 BP 151 / 90; Pulse 84; Resp 18; Temp 98.5; Pulse Ox 100% ; Weight 86.18 kg; Height 5 juan diego ft. 11 in. (180.34 cm); Pain 8/10; 22:17 BP 151 / 90; Pulse 84; Resp 18; Temp 98.5; Pulse Ox 100% on R/A; Pain 8/10; [place] 22:52 BP 135 / 82 RA Supine (auto/reg); Pulse 77 MON; Resp 16 S; Pulse Ox 98% on R/A; bp 11/30 00:07 BP 146 / 86 RA Supine (auto/reg); Pulse 74 MON; Resp 18 S; Pulse Ox 99% on R/A; Pain bp 2/10; 11/29 22:06 Body Mass Index 26.50 (86.18 kg, 180.34 cm) [place]an [place]go Procedures: 01:02 Nerve block: (digital) of palmar aspect of proximal phalanx of left index finger estrella Medication: Marcaine 0.5%, Amount: 3 mls were injected, Effect: the patient's symptoms are improved, markedly, Set up for procedure. Performed by Nikolai MALDONADO Patient tolerated well. Performed Drainage of subungual hematoma. 18-gauge needle was used to puncture the nail plate of the left index finger. Approximately 1 mL of dark blood was expressed. Patient states he feels much less pressure.. MDM: 11/29 23:13 Patient medically screened. estrella 23:58 Data reviewed: vital signs, nurses notes. Counseling: I had a detailed discussion with estrella the patient and/or guardian regarding: the historical points, exam findings, and any diagnostic results supporting the discharge/admit diagnosis, the need for outpatient follow up, to return to the emergency department if symptoms worsen or persist or if there are any questions or concerns that arise at home. Administered Medications: 23:42 Drug: Marcaine (bupivacaine) (0.5 %) 10 ml Volume: 10 ml; Route: Infiltration; bp Disposition: 11/30 06:58 Co-signature as Attending Physician, Oz Shrestha DO I agree with the assessment and ms3 plan of care. Disposition Summary: 11/29/21 23:59 Discharge Ordered Location: Home [facility] Condition: Stable [facility] Diagnosis - Subungual hematoma [facility] Followup: [facility] - With: Private Physician - When: 2 - 3 days - Reason: Recheck today's complaints, Continuance of care, Re-evaluation by your physician Discharge Instructions: - Discharge Summary Sheet [facility] - Subungual Hematoma [facility] Forms: - Medication Reconciliation Form [facility] - Thank You Letter [facility] - Antibiotic Education [facility] - Prescription Opioid Use [facility] Prescriptions: - Cephalexin 500 mg Oral Capsule - take 1 capsule by ORAL route every 6 hours for 10 days; 40 capsule; Refills: 0, jmm Product Selection Permitted Signatures: Nikolai Rodarte PA PA jm Stephen Stephenson, RN RN Oz Hyatt DO DO ms3 Lore Thompson RN RN [place]
[2021-11-30 02:03] VITALS: TEMP 98.5
[2021-11-30 02:09] VITALS: BP 146/86; O2SAT 99
== END 2021-11-30 00:10 | disposition home or self-care (01) ==
LOC: ER 22:01
PROC: 0H9QXZZ Drainage of Finger Nail, External Approach (ICD-10-PCS; principal; 2021-11-30)
DX: S60.122A Contusion of left index finger with damage to nail, initial encounter (principal); E11.9 Type 2 diabetes mellitus without complications
CPT/HCPCS: 64450; 99283

== ENCOUNTER 2022-02-04 22:18 | Emergency (ER) | payer SELFPAY ==
--- OUTSIDE RECORDS SUMMARY | 2022-02-04 22:21 | XMS REPORT | Continuity of Care Document ---
:1965 Author Organization [facility] t Address [address] [place] [address] Care Team Providers Name Role Phone Mindi [...] Known DA Active [facility]02 [facility] 00:00: [address] No Known DA Active U [facility] 02-05 [facility] s 00:00: [address] No Known DA Active [facility] 04-08 [facility] s 00:00: [address] No Known DA Active U [facility] 04-18 [facility] s 00:00: [address] Medications This patient has no known medications. Procedures This patient has no known procedures. Encounters Start End Encounter Admission Attending Care Care Encounter Source Date/Time Date/Time Type Type Clinicians Facility Department ID 2020-09-07 Inpatient [facility] ER [id number] [facility] 02:[facility]00 [facility] 2020-04-04 Inpatient [facility] ER [id number] [facility] 15:49:[id number] [facility] 2020-03-16 Inpatient [facility] ER [id number] [facility] 15:17:00 [facility] 2020-03-02 Inpatient [facility] ER [id number] [facility] 17:46:[id number] [facility] 2020-02-06 Inpatient [facility] ER [id number] [facility] 11:02:00 [facility] 2019-10-24 Inpatient [facility] ER [id number] [facility] 17:11:[id number] [facility] 2019-10-06 Inpatient [facility] ER [id number] [facility] 05:44:00 [facility] 2021-11-27 2021-11-27 Emergency EM [place], [facility] ER [id number] [facility] 01:14:00 02:15:[id number] [facility] 2021-11-27 2021-11-27 Emergency EM [place], [facility] [id number] [facility] 01:14:00 02:15:[address] [facility] Results Test Description Test Time Test Comments Results Result [facility] e Comments - XR FINGER(S) 2+V 2021-11-27 LT [facility]:58:00 [facility] : 1965 Sex: M Patient Name: YESENIA BECKFORD Unit No: [id number] EXAMS: CPT CODE: [id number] XR FINGER(S) 2+V LT [address] Reason: HAMMER DISTAL FINGERTIP LOCATION: H43 EXAM: [...] DO Technologist: Kimberly Barber RT Trscrpt Dt/ (0158)AlcidesRAngelicaNS15 Orig Print D/T: S: 11/27/2021 (0201) [facility] NAME: YESENIA BECKFORD [address]: [place] [address] : 1965 AGE: 56 SEX: M LOC: [facility] PHONE #: [phone] EXAM DATE: 11/27/2021 STATUS: REG ER FAX [...] oth srcURINE SOURCE: Clean CatchUA RFLX MICROSCOPIC [id number] 08:30:00 Test Item Value Reference Range Interpretation [...] culture: RiskForSepsis-no oth srcURINE SOURCE: Clean Catch [id number] 08:08:00 Test Item Value Reference Range Interpretation Comments GLUBED (test code = 111 MG/DL 65-99 H Performe d by certified GLUBED) 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 DRUG OF ABUSE SCREEN [id number] 07:41:00 Test Item Value Reference Interpretation Comments [...] by viki frank methods (i.e., GC/MS) at [facility]. Results of scre en may not be usedin crimi nal justice, job performance or professionalcre dential review, or infa nt custody issues. Negativ e [place] Level ng/ml ------- ----- Cocaine 300 Methamp hetamine (Ecstacy) 500 Cannabinoids (THC) 50 Amphetamine 1000 Barbiturate s 200 Benzodia zepines 200 Opiat es 300 Ph encyclidine (PCP) 25 - XR CHEST 1 [id number] 05:33:00 [facility] : 1965 Sex: M Patient Name: YESENIA BECKFROD Unit No: [id number] EXAMS: CPT CODE: [id number] XR CHEST 1 V 69929 Reason: chest pain PROCEDURE INFORMATION: Exam: XR [...] (0533)VRAD.VR Orig Print D/T: S: 09/07/2020 (0534) [facility] NAME: YESENIA BECKFORD [address]:[place] [address] : 1965 AGE: 54 SEX: M LOC: [facility] PHONE #: [phone] EXAM DATE: 09/07/2020 STATUS: REG ER FAX #: RAD NO: DC Dt: PAGE 1 Signed ReportBASI METABOLIC [id number] 04:23:00 Test Item Value Reference Range Interpretation [...] 9.5 MG/DL 8.7-10.5 N CA) HEPATIC FUNCTION [id number] 04:23:00 Test Item Value Reference Range Interpretation [...] 50-136 N TOTAL (test code = ALKP) [id number] 04:23:00 Test Item Value Reference Range Interpretation Comments LIPASE (test code = LIP) 183 Units/L 73-393 N [id number] 04:23:00 Test Item Value Reference Range Interpretation Comments MAGNESIUM (test code = MAG) 1.9 MG/DL 1.8-2.4 N THYROID STIMULATING [id number] 04:23:00 Test Item Value Reference Range Interpretation Comments THYROID STIMULATING 5.20 0.42-5.47 N Micro-In ternational HORMONE (test code = TSH) Un its/LResults of this assay method ma y be falsely depress ed orelevated if p atient is taking high doses of Biotin. NT PRO-BRAIN NATRIURETIC [id number] 04:23:00 Test Item Value Reference Range Interpretation Comments NT PRO-BRAIN 40 PG/ML 0-125 N Results of this assay NATRIURETIC PEPTI (test meth od may be falsely code = PROBNP) depressed ore levated if patient is t aking high doses of B iotin. CPK-MB [id number] 04:23:00 Test Item Value Reference Range Interpretation Comments CK (test code = 239 Units/L 39-308 N CKT) CKMB (test code = 2.8 NG/ML 0.0-3.6 N CKMB sugge stive of CKMBT) non-AMI; MB Ind ex is not reported. [id number] 04:23:00 Test Item Value Reference Range Interpretation [...] is taking high dos es of Biotin. [id number] 04:23:00 Test Item Value Reference Range Interpretation Comments ALCOHOL (test code = 95 MG/DL 0-10 H 0 - 10: Should be ALC) interpreted as NEGATIVE. 11 - 50: None to mild euphoria. 51 - 100: Mild influence on vision and dark adapta tion. > 80: Legal intoxication; D epression of CRAB MEAT PROCESSOR; Increasing degr ee of poisoning. > 400: Fatalities repo rted. Results are for medical purposes only a nd not forlegal or emp loyment evaluative purp oses. 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 Results of scre en may not be usedin crimi nal justice, job performance or professionalcre dential review, or infa nt custody issues. Negativ e [place] Level ng/ml ------- ----- Cocaine 300 Methamp hetamine (Ecstacy) 500 Cannabinoids (THC) 50 Amphetamine 1000 Barbiturate s 200 Benzodia zepines 200 Opiat es 300 Ph encyclidine (PCP) 25 [id number] 21:34:00 Test Item Value Reference Range Interpretation Comments AMMONIA (test code = 24 UMOL/L 11-35 N Results of this assay AMM) method may be f alsely depressed orele vated if patient is taki ng sulfasalazine. BETA [id number] 20:37:00 Test Item Value Reference Range Interpretation Comments BETA HYDROXYBUTYRATE (test code = 0.33 mmol/L 0.02-0.27 H BETHYD) - CT HEAD/BRAIN W/O [id number] 20:25:00 Patient Name: YESENIA BECKFORD Unit No: [id number] EXAMS: CPT CODE: [id number] CT HEAD/BRAIN W/O CONT 28789 Reason: aguilar - CT HEAD/BRAIN W/O CONT [...] Technologist: Sarita Marcelo RT PRN Trscrpt Dt/ (2024)t.PKE Orig Print D/T: S: 03/02/2020 (2027) [facility]DI: DLP: [facility] NAME: YESENIA BECKFORD [address]: [place] [address] : 1965 AGE: 54 SEX: M LOC: [facility] PHONE #: [phone] EXAM DATE: 03/02/2020 STATUS: REG ER FAX [...] 50-136 N TOTAL (test code = ALKP) [id number] 20:14:00 Test Item Value Reference Range Interpretation Comments PHOSPHOROUS (test code = PHOS) 2.9 MG/DL 2.5-4.9 N [id number] 20:14:00 Test Item Value Reference Range Interpretation Comments MAGNESIUM (test code = MAG) 2.0 MG/DL 1.8-2.4 N [id number] 20:14:00 Test Item Value Reference Range Interpretation [...] is taking high dos es of Biotin. [id number] 20:14:00 Test Item Value Reference Range Interpretation Comments ALCOHOL (test code = < 3 MG/DL 0-10 N 0 - 10: Should be ALC) interpreted as NEGATIVE. 11 - 50: None to mild euphoria. 51 - 100: Mild influence on vision and dark adapta tion. > 80: Legal intoxication; D epression of CRAB MEAT PROCESSOR; Increasing degr ee of poisoning. > 400: Fatalities repo rted. Results are for medical purposes only a nd not forlegal or emp loyment evaluative purp oses. CBC W/AUTO [id number] 19:01:00 Test Item Value Reference Range Interpretation [...] 0.0-0.2 N NRBC#) - XR CHEST 1 [id number] 18:53:00 Patient Name: YESENIA BECKFORD Unit No: [id number] EXAMS: CPT CODE: [id number] XR CHEST 1 V 35086 Reason: weakness - XR CHEST 1 V [...] MD Technologist: Aixa MORILLO (Krista) Trscrpt Dt/ (1852)t.LUIZE Orig Print D/T: S: 03/02/2020 (1855) [facility] NAME: YESENIA BECKFORD [address]: [place] [address] : 1965 AGE: 54 SEX: M LOC: [facility] PHONE #: [phone] EXAM DATE: 03/02/2020 STATUS: REG ER FAX #: RAD NO: DC Dt: PAGE 1 Signed [id number] 18:26:00 Test Item Value Reference Range Interpretation Comments GLUBED (test code = 191 MG/DL 65-99 H Performe d by certified GLUBED) 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 - CT HEAD/BRAIN W/O [id number] 18:19:00 Patient Name: YESENIA BECKFORD Unit No: [id number] EXAMS: CPT CODE: [id number] CT HEAD/BRAIN W/O CONT 20672 Reason: Headache TECHNIQUE: Contiguous 5 mm images were obtained throughbrain. No contrast was given. FINDINGS: The ventricles are normal in size and configuration. There is no intracranial hemorrhage, mass effect or abnormal extra-axial fluid collection. There are no focal attenuation abnormalities within the brain parenchyma. Bone targeted windows are unremarkable. IMPRESSION: Negative at 181 Reported and signed by: Marco Mora MD CC: Maximiliano Jimenez DO Technologist: Mc Mims RT Trscrpt Dt/ (1818)tFLAVIOW Orig Print D/T: S: 10/24/2019 (1821) [facility]DI: DLP: [facility] NAME: YESENIA BECKFORD [address]: Maximiliano Granados [facility] [place] [address] : 1965 AGE: 53 SEX: M LOC: [facility] PHONE#: [phone] EXAM DATE: 10/24/2019 STATUS: REG ER FAX #: RAD NO: DC Dt: PAGE 1 Signed ReportCBC W/AUTO [id number] 18:10:00 Test Item Value Reference Range Interpretation [...] = 0.0 X10 3/uL 0.0-0.2 N NRBC#) [id number] 18:08:00 Test Item Value Reference Range Interpretation Comments GLUBED (test code = 106 MG/DL 65-99 H Performe d by certified GLUBED) 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 [facility] MC - XR FINGER(S) 2+V [id number] 06:53:00 Patient Name: YESENIA BECKFORDO Unit No: [id number] EXAMS: CPT CODE: [id number] XR FINGER(S) 2+[place] [address] Reason: pain, injury PROCEDURE INFORMATION: Exam: XR [...] (0653)ABRAHAM.JUDAH Rouse Print D/T: S: 10/06/2019 (0653) [facility] NAME: YESENIA BECKFORD [address]: BOUDA.Ramu - [place] [address] : 1965 AGE:53 SEX: M LOC: [facility] PHONE #: [phone] EXAM DATE: 10/06/2019 STATUS: DEP ER FAX #: RAD NO: DC Dt: PAGE 1 Signed Report- XR L-SPINE 2/3 VIEWS 2019-10-06 06:45:00 Patient Name: YESENIA BECKFORD Unit No: [id number] EXAMS: CPT CODE: [id number] XR L-SPINE 2/3 VIEWS 02713 Reason: pain PROCEDURE INFORMATION: Exam: XR Lumbosacral [...] (0645)ABRAHAM.VR Orig Print D/T: S: 10/06/2019 (0646) [facility] NAME: YESENIA BECKFORD [address]: BOUDA.Ramu - Shayne [place] [address] : 1965 AGE: 53 SEX: M LOC: [facility] PHONE #: [phone] EXAM DATE: 10/06/2019 STATUS: REG ER FAX #: RAD NO: DC Dt: PAGE 1 Signed [id number] 11:02:00 Test Item Value Reference Range Interpretation Comments GLUBED (test code = 176 MG/DL 65-99 H Performe d by certified GLUBED) 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 [id number] 08:07:00 Test Item Value Reference Range Interpretation Comments GLUBED (test code = 227 MG/DL 65-99 H Performe d by certified GLUBED) 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 UA RFLX MICROSCOPIC [id number] 07:43:00 Test Item Value Reference Range Interpretation [...] for culture: Dysuria/FrequencyURINE SOURCE: Clean CatchBASIC METABOLIC [id number] 07:24:00 Test Item Value Reference Range Interpretation [...] 9.6 MG/DL 8.7-10.5 N CA) HEPATIC FUNCTION [id number] 07:24:00 Test Item Value Reference Range Interpretation [...] 50-136 N TOTAL (test code = ALKP) [id number] 07:24:00 Test Item Value Reference Range Interpretation Comments LIPASE (test code = LIP) 165 Units/L 73-393 N CBC W/AUTO [id number] 07:05:00 Test Item Value Reference Range Interpretation [...] 3/uL 0.0-0.2 N NRBC#) UA RFLX MICROSCOPIC [id number] 02:01:00 Test Item Value Reference Range Interpretation [...] Suprapubic PainURINE SOURCE: Clean CatchUA RFLX MICROSCOPIC [id number] 01:57:00 Test Item Value Reference Range Interpretation [...] 65-99 H Performe d by certified GLUBED) 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
--- NOTE | 2022-02-05 01:01 | ER ---
Nurse's Notes [facility] Name: Trenton Velasquez Age: 56 yrs Sex: Male : 1965 Arrival Date: 02/04/2022 Time: 22:33 Bed Waiting Private MD: Diagnosis: ED Course: 02/04 22:33 Patient arrived in ED. ja2 23:40 Patient's name was called from ER lobby. No response. Unable to locate patient. Will lp1 disposition as left without being seen by a provider. Administered Medications: No medications were administered Outcome: 23:40 Patient left the ED. lp1 Signatures: Caro Wu RN RN lp1 Kristen Jones Corrections: (The following items were deleted from the chart) 02/05 01:00 01:00 Patient left the ED. lp1 lp1
== END 2022-02-05 01:00 | disposition left against medical advice (07) ==
LOC: ER 22:18
DX: Z02.9 Encounter for administrative examinations, unspecified (principal)

== ENCOUNTER 2022-02-05 06:14 | Emergency (ER) | payer SELFPAY ==
--- OUTSIDE RECORDS SUMMARY | 2022-02-05 06:19 | XMS REPORT | Continuity of Care Document ---
:1965 Author Organization [facility] t Address [address] [place] [address] Care Team Providers Name Role Phone Mindi [...] Known DA Active U [facility]02 [facility] 00:00: [address] No Known DA Active U [facility] 02-05 [facility] s 00:00: [address] No Known DA Active U [facility] 04-08 [facility] s 00:00: [address] No Known DA Active U [facility] 04-18 [facility] s 00:00: [address] Medications This patient has no known medications. Procedures This patient has no known procedures. Encounters Start End Encounter Admission Attending Care Care Encounter Source Date/Time Date/Time Type Type Clinicians Facility Department ID 2020-09-07 Inpatient [facility] ER [id number] [facility] 02:31:00 [facility] 2020-04-04 Inpatient [facility] ER [id number] [facility] 15:49:00 [id number] [facility] 2020-03-16 Inpatient [facility] ER [id number] [facility] 15:17:00 [facility] 2020-03-02 Inpatient [facility] ER [id number] [facility] 17:46:00 [id number] [facility] 2020-02-06 Inpatient [facility] [id number] [facility] 11:02:00 [facility] 2019-10-24 Inpatient [facility] [id number] [facility] 17:11:00 [id number] [facility] 2019-10-06 Inpatient [facility] ER [id number] [facility] 05:44:00 [facility] 2021-11-27 2021-11-27 Emergency EM Adrian, [facility] ER [id number] [facility] 01:14:00 02:15:00 Trenten [id number] [facility] 2021-11-27 2021-11-27 Emergency EM [place], [facility] [id number] [facility] 01:14:00 02:15:00 Trenten 95 [facility] Results Test Description Test Time Test Comments Results Result [facility] e Comments - XR FINGER(S) 2+V 2021-11-27 LT 01:58:00 [facility] 1965 Sex: M Patient Name: YESENIA BECKFORD Unit No: [id number] EXAMS: CPT CODE: [id number] XR FINGER(S) 2+V LT 15424 Reason: HAMMER DISTAL FINGERTIP LOCATION: H43 EXAM: [...] Print D/T: S: 11/27/2021 (0201) [facility] NAME: YESENIA BECKFORD [address] PH[address]: YOGESH - [place] [address] : 1965 AGE: 56 SEX: M LOC: [facility] PHONE #: [phone] EXAM DATE: 11/27/2021 STATUS: REG ER FAX [...] oth srcURINE SOURCE: Clean CatchUA RFLX MICROSCOPIC [id number] 08:30:00 Test Item Value Reference Range Interpretation [...] culture: RiskForSepsis-no oth srcURINE SOURCE: Clean Catch [id number] 08:08:00 Test Item Value Reference Range Interpretation Comments GLUBED (test code = 111 MG/DL 65-99 H Performe d by certified GLUBED) 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 DRUG OF ABUSE SCREEN [id number] 07:41:00 Test Item Value Reference Interpretation Comments [...] by viki frank methods (i.e., GC/MS) at [facility]. Results of scre en may not be usedin crimi nal justice, job performance or professionalcre dential review, or infa nt custody issues. Negativ e Henderson Level ng/ml ------- ----- Cocaine 300 Methamp hetamine (Ecstacy) 500 Cannabinoids (THC) 50 Amphetamine 1000 Barbiturate s 200 Benzodia zepines 200 Opiat es 300 Ph encyclidine (PCP) 25 - XR CHEST 1 [id number] 05:33:00 [facility] : 1965 Sex: M Patient Name: YESENIA BECKFORD Unit No: [id number] EXAMS: CPT CODE: [id number] XR CHEST 1 V 37717 Reason: chest pain PROCEDURE INFORMATION: Exam: XR [...] (0533)VRAD.VR Orig Print D/T: S: 09/07/2020 (0534) [facility] NAME: YESENIA BECKFORD [address] PH[address]:ANGELINA.Rose Ceja,[place] [address] : 1965 AGE: 54 SEX: M LOC: [facility] PHONE #: [phone] EXAM DATE: 09/07/2020 STATUS: REG ER FAX #: RAD NO: DC Dt: PAGE 1 Signed ReportBASI METABOLIC [id number] 04:23:00 Test Item Value Reference Range Interpretation [...] 9.5 MG/DL 8.7-10.5 N CA) HEPATIC FUNCTION [id number] 04:23:00 Test Item Value Reference Range Interpretation [...] 50-136 N TOTAL (test code = ALKP) [id number] 04:23:00 Test Item Value Reference Range Interpretation Comments LIPASE (test code = LIP) 183 Units/L 73-393 N [id number] 04:23:00 Test Item Value Reference Range Interpretation Comments MAGNESIUM (test code = MAG) 1.9 MG/DL 1.8-2.4 N THYROID STIMULATING [id number] 04:23:00 Test Item Value Reference Range Interpretation Comments THYROID STIMULATING 5.20 0.42-5.47 N Micro-In ternational HORMONE (test code = TSH) Un its/LResults of this assay method ma y be falsely depress ed orelevated if p atient is taking high doses of Biotin. NT PRO-BRAIN NATRIURETIC [id number] 04:23:00 Test Item Value Reference Range Interpretation Comments NT PRO-BRAIN 40 PG/ML 0-125 N Results of this assay NATRIURETIC PEPTI (test meth od may be falsely code = PROBNP) depressed ore levated if patient is t aking high doses of B iotin. CPK-MB [id number] 04:23:00 Test Item Value Reference Range Interpretation Comments CK (test code = 239 Units/L 39-308 N CKT) CKMB (test code = 2.8 NG/ML 0.0-3.6 N CKMB sugge stive of CKMBT) non-AMI; MB Ind ex is not reported. [id number] 04:23:00 Test Item Value Reference Range Interpretation [...] is taking high dos es of Biotin. [id number] 04:23:00 Test Item Value Reference Range Interpretation Comments ALCOHOL (test code = 95 MG/DL 0-10 H 0 - 10: Should be ALC) interpreted as NEGATIVE. 11 - 50: None to mild euphoria. 51 - 100: Mild influence on vision and dark adapta tion. > 80: Legal intoxication; D epression of TRAIN OPERATIONS SUPERVISOR; Increasing degr ee of poisoning. > 400: Fatalities repo rted. Results are for medical purposes only a nd not forlegal or emp loyment evaluative purp oses. 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 Results of scre en may not be usedin crimi nal justice, job performance or professionalcre dential review, or infa nt custody issues. Negativ e Henderson Level ng/ml ------- ----- Cocaine 300 Methamp hetamine (Ecstacy) 500 Cannabinoids (THC) 50 Amphetamine 1000 Barbiturate s 200 Benzodia zepines 200 Opiat es 300 Ph encyclidine (PCP) 25 [id number] 21:34:00 Test Item Value Reference Range Interpretation Comments AMMONIA (test code = 24 UMOL/L 11-35 N Results of this assay AMM) method may be f alsely depressed orele vated if patient is taki ng sulfasalazine. BETA [id number] 20:37:00 Test Item Value Reference Range Interpretation Comments BETA HYDROXYBUTYRATE (test code = 0.33 mmol/L 0.02-0.27 H BETHYD) - CT HEAD/BRAIN W/O [id number] 20:25:00 Patient Name: YESENIA BECKFORD Unit No: [id number] EXAMS: CPT CODE: [id number] CT HEAD/BRAIN W/O CONT 26854 Reason: aguilar - CT HEAD/BRAIN W/O CONT [...] Print D/T: S: 03/02/2020 (2027) CTDI: DLP: [facility] NAME: YESENIA BECKFORD [address]: [place] [address] : 1965 AGE: 54 SEX: M LOC: [facility] PHONE #: [phone] EXAM DATE: 03/02/2020 STATUS: REG ER FAX [...] 50-136 N TOTAL (test code = ALKP) [id number] 20:14:00 Test Item Value Reference Range Interpretation Comments PHOSPHOROUS (test code = PHOS) 2.9 MG/DL 2.5-4.9 N [id number] 20:14:00 Test Item Value Reference Range Interpretation Comments MAGNESIUM (test code = MAG) 2.0 MG/DL 1.8-2.4 N [id number] 20:14:00 Test Item Value Reference Range Interpretation [...] is taking high dos es of Biotin. [id number] 20:14:00 Test Item Value Reference Range Interpretation Comments ALCOHOL (test code = < 3 MG/DL 0-10 N 0 - 10: Should be ALC) interpreted as NEGATIVE. 11 - 50: None to mild euphoria. 51 - 100: Mild influence on vision and dark adapta tion. > 80: Legal intoxication; D epression of TRAIN OPERATIONS SUPERVISOR; Increasing degr ee of poisoning. > 400: Fatalities repo rted. Results are for medical purposes only a nd not forlegal or emp loyment evaluative purp oses. CBC W/AUTO [id number] 19:01:00 Test Item Value Reference Range Interpretation [...] 0.0-0.2 N NRBC#) - XR CHEST 1 [id number] 18:53:00 Patient Name: YESENIA BECKFORD Unit No: [id number] EXAMS: CPT CODE: [id number] XR CHEST 1 V 12071 Reason: weakness - XR CHEST 1 V [...] (1852)tTYRAE Orig Print D/T: S: 03/02/2020 (1855) [facility] NAME: YESENIA BECKFORD [address]: Adarsh [place] [address] : 1965 AGE: 54 SEX: M LOC: [facility] PHONE #: [phone] EXAM DATE: 03/02/2020 STATUS: REG ER FAX #: RAD NO: DC Dt: PAGE 1 Signed [id number] 18:26:00 Test Item Value Reference Range Interpretation Comments GLUBED (test code = 191 MG/DL 65-99 H Performe d by certified GLUBED) 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 - CT HEAD/BRAIN W/O [id number] 18:19:00 Patient Name: YESENIA BECKFORD Unit No: [id number] EXAMS: CPT CODE: [id number] CT HEAD/BRAIN W/O CONT 32071 Reason: Headache TECHNIQUE: Contiguous 5 mm images [...] Print D/T: S: 10/24/2019 (1821) CTDI: DLP: [facility] NAME: YESENIA BECKFORD [address]: Maximiliano Granados DO [place] [address] : 1965 AGE: 53 SEX: M LOC: [facility] PHONE#: [phone] EXAM DATE: 10/24/2019 STATUS: REG ER FAX #: RAD NO: DC Dt: PAGE 1 Signed ReportCBC W/AUTO [id number] 18:10:00 Test Item Value Reference Range Interpretation [...] = 0.0 X10 3/uL 0.0-0.2 N NRBC#) [id number] 18:08:00 Test Item Value Reference Range Interpretation Comments GLUBED (test code = 106 MG/DL 65-99 H Performe d by certified GLUBED) 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 - XR FINGER(S) 2+V [id number] 06:53:00 Patient Name: YESENIA BECKFORD Unit No: [id number] EXAMS: CPT CODE: [id number] XR FINGER(S) 2+V LT [address] Reason: pain, injury PROCEDURE INFORMATION: Exam: XR [...] (0653)[id number].JUDAH Rouse Print D/T: S: 10/06/2019 (0653) [facility] NAME: YESENIA BECKFORD [address]: BOUDA.Ramu - Shayne Nelson [place] [address] : 1965 AGE:53 SEX: M LOC: [facility] PHONE #: [phone] EXAM DATE: 10/06/2019 STATUS: DEP ER FAX #: RAD NO: DC Dt: PAGE 1 Signed Report- XR L-SPINE 2/3 VIEWS 2019-10-06 06:45:00 Patient Name: YESENIA BECKFORD Unit No: [id number] EXAMS: CPT CODE: [id number] XR L-SPINE 2/3 VIEWS 72704 Reason: pain PROCEDURE INFORMATION: Exam: XR Lumbosacral [...] DO Technologist: Kym Shrestha RT Trscrpt Dt/ (0645)ABRAHMA.VR Orig Print D/T: S: 10/06/2019 (0646) [facility] NAME: YESENIA BECKFORD [address]: BOUDA.Ramu - Sh[place]ne [place] [address] : 1965 AGE: 53 SEX: M LOC: [facility] PHONE #: [phone] EXAM DATE: 10/06/2019 STATUS: REG ER FAX #: RAD NO: DC Dt: PAGE 1 Signed [id number] 11:02:00 Test Item Value Reference Range Interpretation Comments GLUBED (test code = 176 MG/DL 65-99 H Performe d by certified GLUBED) 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..] 50-136 N TOTAL (test code = ALKP) [id number] 07:24:00 Test Item Value Reference Range Interpretation Comments LIPASE (test code = LIP) 165 Units/L 73-393 N CBC W/AUTO [id number] 07:05:00 Test Item Value Reference Range Interpretation [...] 3/uL 0.0-0.2 N NRBC#) UA RFLX MICROSCOPIC [id number] 02:01:00 Test Item Value Reference Range Interpretation [...] Suprapubic PainURINE SOURCE: Clean CatchUA RFLX MICROSCOPIC [id number] 01:57:00 Test Item Value Reference Range Interpretation [...] 65-99 H Performe d by certified GLUBED) 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
--- NOTE | 2022-02-05 07:29 | EDPHYS ---
Physician Documentation [facility] Name: Trenton Velasquez Age: 56 yrs Sex: Male : 1965 Arrival Date: 02/05/2022 Time: 06:17 Bed 8 Private MD: ED Physician Anuj Hutchins HPI: 02/05 08:47 This 56 yrs old Male presents to ER via Ambulatory with complaints of Wound Infection, kdr Rash. 08:47 Patient states that 3 or 4 days ago he developed a rash over his mid to low back. kdr Extended down onto his buttock. He states that the rash is itchy and mildly uncomfortable but otherwise problematic. He has not had this before. He states [place] and describes the rash potentially to that exposure. He also complains of intermittent transient circular/annular raised areas that are itchy and painful. He says been coming and going for some time around his body. Patient does not appear toxic in any way or required acute intervention at this time.. Onset: The symptoms/episode began/occurred gradually, 3 day(s) ago. Severity of symptoms: At their worst the symptoms were mild in the emergency department the symptoms are unchanged. The patient has not experienced similar symptoms in the past. The patient has not recently seen a physician. Historical: - Allergies: 06:31 No Known Allergies; as6 - Home Meds: 06:31 metformin 500 mg oral TG24 1 tab 2 times per day [Active]; as6 - PMHx: 06:31 diabetes mellitus; as6 - PSHx: 06:31 None; as6 - Immunization history:: Client reports receiving the 2nd dose of the Covid vaccine, moderna . - Social history:: Smoking status: Patient denies any tobacco usage or history of. ROS: 08:47 Constitutional: Negative for fever, chills, and weight loss, Eyes: Negative for injury, kdr pain, redness, and discharge, Neck: Negative for injury, pain, and swelling, Cardiovascular: Negative for chest pain, palpitations, and edema, Respiratory: Negative for shortness of breath, cough, wheezing, and pleuritic chest pain. 08:47 Skin: Positive for erythema, rash, of the low back area and mid back area. Exam: 08:47 Constitutional: This is a well developed, well nourished patient who is awake, alert, kdr and in no acute distress. Head/Face: Normocephalic, atraumatic. 08:47 Skin: rash a mild rash is noted, rash can be described as erythematous, macular, on the low back area, mid back area and buttocks. Vital Signs: 06:29 BP 126 / 82; Pulse 71 MON; Resp 19 S; Temp 98.1(O); Pulse Ox 97% on R/A; Weight 89.81 as6 kg (R); Height 5 ft. 11 in. (180.34 cm) (R); Pain 5/10; 06:29 Body Mass Index 27.62 (89.81 kg, 180.34 cm) as6 MDM: 07:29 Patient medically screened. kdr 08:54 Data reviewed: vital signs, nurses notes. Counseling: I had a detailed discussion with kdr the patient and/or guardian regarding: the historical points, exam findings, and any diagnostic results supporting the discharge/admit diagnosis, the need for outpatient follow up. Administered Medications: No medications were administered Disposition Summary: 02/05/22 07:29 Discharge Ordered Location: Home kdr Problem: new kdr Symptoms: are unchanged kdr Condition: Stable kdr Diagnosis - Rash and other nonspecific skin eruption kdr Followup: kdr - With: Private Physician - When: 2 - 3 days - Reason: If symptoms return, Further diagnostic work-up, Recheck today's complaints, Continuance of care, Re-evaluation by your physician Discharge Instructions: - Discharge Summary Sheet kdr - Rash, Adult, [id number] kdr Forms: - Medication Reconciliation Form kdr - Thank You Letter kdr - Prescription Opioid Use kdr - Work release form jl7 Prescriptions: - Benadryl 25 mg Oral Capsule - take 1 capsule by ORAL route every 6 hours As needed; 30 tablet; Refills: 0, kdr Product Selection Permitted - Prednisone 20 mg Oral Tablet - take 1 tablet by ORAL route once daily for 5 days; 5 tablet; Refills: 0, kdr Product Selection Permitted - Triamcinolone Acetonide 0.5 % Topical Cream - apply 1 application by TOPICAL route 2 times per day As needed Apply to round kdr areas that itch on your skin as needed; 1 tube; Refills: 0, Product Selection Permitted - Pepcid 20 mg Oral Tablet - take 1 tablet by ORAL route once daily for 10 days; 10 tablet; Refills: 0, kdr Product Selection Permitted Signatures: Anuj Hutchins MD MD kdr Ananda Donis, RN RN as6
--- NOTE | 2022-02-05 07:29 | ER ---
Nurse's Notes [facility] Name: Trenton Velasquez Age: 56 yrs Sex: Male : 1965 Arrival Date: 02/05/2022 Time: 06:17 Bed 8 Private MD: Diagnosis: Rash and other nonspecific skin eruption Presentation: 02/05 06:29 Chief complaint: Patient states: "[place] and now I have a as6 rash everywhere". Coronavirus screen: At this time, the client does not indicate any symptoms associated with coronavirus-19. 06:29 Method Of Arrival: Ambulatory as6 06:29 Ebola Screen: No symptoms or risks identified at this time. Initial Sepsis Screen: Does as6 the patient meet any 2 criteria? No. Patient's initial sepsis screen is negative. Does the patient have a suspected source of infection? No. Patient's initial sepsis screen is negative. Risk Assessment: Do you want to hurt yourself or someone else? Patient reports no desire to harm self or others. Onset of symptoms was February 03, 2022. 06:29 Acuity: GIOVANNA 4 as6 Historical: - Allergies: 06:31 No Known Allergies; as6 - Home Meds: 06:31 metformin 500 mg oral TG24 1 tab 2 times per day [Active]; as6 - PMHx: 06:31 diabetes mellitus; as6 - PSHx: 06:31 None; as6 - Immunization history:: Client reports receiving the 2nd dose of the Covid vaccine, moderna . - Social history:: Smoking status: Patient denies any tobacco usage or history of. Screenin:31 Abuse screen: Denies threats or abuse. Denies injuries from another. Nutritional as6 screening: No deficits noted. Tuberculosis screening: No symptoms or risk factors identified. Fall Risk None identified. Assessment: 06:33 General: Appears in no apparent distress. Behavior is calm, cooperative. Pain: as6 Complains of pain in back and abdomen. Neuro: Malcolm Agitation-Sedation Scale (RASS): 0 - Alert and Calm Level of Consciousness is awake, alert, obeys commands, Oriented to person, place, time, situation. Cardiovascular: JVD is absent Patient's skin is warm and dry. Respiratory: Respiratory effort is even, unlabored, Respiratory pattern is regular, symmetrical. Derm: Rash noted that is itchy, red, raised, on back and abdomen. Vital Signs: 06:29 BP 126 / 82; Pulse 71 MON; Resp 19 S; Temp 98.1(O); Pulse Ox 97% on R/A; Weight 89.81 as6 kg (R); Height 5 ft. 11 in. (180.34 cm) (R); Pain 5/10; 06:29 Body Mass Index 27.62 (89.81 kg, 180.34 cm) as6 ED Course: 06:17 Patient arrived in ED. bp1 06:20 Ananda Donis, RN is Primary Nurse. as6 06:30 Triage completed. as6 06:32 Arm band placed on. as6 06:32 Placed in gown. Bed in low position. Call light in reach. Side rails up X 1. Pulse ox as6 on. NIBP on. 07:18 Primary Nurse role handed off by Ananda Donis, LAUREN jl7 07:18 Sybil [place], LAUREN is Primary Nurse. jl7 07:20 Anuj Hutchins MD is Attending Physician. kdr 08:04 No provider procedures requiring assistance completed. Patient did not have IV access jl7 during this emergency room visit. Administered Medications: No medications were administered Medication: 06:32 VIS not applicable for this client. as6 Outcome: 07:29 Discharge ordered by . kdr 08:04 Discharged to home ambulatory. jl7 08:04 Condition: stable 08:04 Discharge instructions given to patient, Instructed on discharge instructions, follow up and referral plans. medication usage, Demonstrated understanding of instructions, follow-up care, medications, Prescriptions given X 4. 08:05 Patient left the ED. jl7 Signatures: Anuj Hutchins MD MD kdr Sybil [place], RN RN jl7 Skylar Li bp1 Ananda Donis RN RN as6
[2022-02-05 08:09] VITALS: BP 126/82; TEMP 98.1; O2SAT 97
== END 2022-02-05 08:05 | disposition home or self-care (01) ==
LOC: ER 06:14
DX: R21 Rash and other nonspecific skin eruption (principal); E11.9 Type 2 diabetes mellitus without complications
CPT/HCPCS: 99283

== ENCOUNTER 2022-02-18 10:57 | Emergency (ER) | payer SELFPAY ==
--- OUTSIDE RECORDS SUMMARY | 2022-02-18 11:01 | XMS REPORT | Continuity of Care Document ---
:1965 Author Organization [facility] t Address [address] [place] [address] Care Team Providers Name Role Phone Mindi [...] Known DA Active [facility]02 [facility] 00:00: [address] No Known DA Active U [facility] 02-05 [facility] 00:00: [address] No Known DA Active U [facility] 04-08 [facility] 00:00: [address] No Known DA Active U [facility] 04-18 [facility] s 00:00: [address] Medications This patient has no known medications. Procedures This patient has no known procedures. Encounters Start End Encounter Admission Attending Care Care Encounter Source Date/Time Date/Time Type Type Clinicians Facility Department ID 2020-09-07 Inpatient [facility] ER [id number] [facility] 02:31:00 [facility] 2020-04-04 Inpatient [facility] ER [id number] [facility] 15:49:00 [id number] [facility] 2020-03-16 Inpatient [facility] ER [id number] [facility] 15:17:00 [facility] 2020-03-02 Inpatient [facility] ER [id number] [facility] 17:46:00 [id number] [facility] 2020-02-06 Inpatient [facility] [id number] [facility] 11:02:00 [facility] 2019-10-24 Inpatient [facility] [id number] [facility] 17:11:00 [id number] [facility] 2019-10-06 Inpatient [facility] ER [id number] [facility] 05:44:00 [facility] 2021-11-27 2021-11-27 Emergency EM Adrian, [facility] ER [id number] [facility] 01:14:00 02:15:00 Trenten [id number] [facility] 2021-11-27 2021-11-27 Emergency EM Brighton, [facility] [id number] [facility] 01:14:00 02:15:00 Trenten 95 [facility] Results Test Description Test Time Test Comments Results Result [facility] e Comments - XR FINGER(S) 2+V 2021-11-27 LT 01:58:00 [facility] : 1965 Sex: M Patient Name: YESENIA BECKFORD Unit No: [id number] EXAMS: CPT CODE: [id number] XR FINGER(S) 2+[place] LT [address] Reason: HAMMER DISTAL FINGERTIP LOCATION: H43 EXAM: [...] ([id number])AlcidesRAngelicaNS15 Orig Print D/T: S: 11/27/2021 (0201) [facility] NAME: YESENIA BECKFORD [address]: YOGESH - Rena [place] [address] : 1965 AGE: 56 SEX: M LOC: [facility] PHONE #: [phone] EXAM DATE: 11/27/2021 STATUS: REG ER FAX [...] oth srcURINE SOURCE: Clean CatchUA RFLX MICROSCOPIC [id number] 08:30:00 Test Item Value Reference Range Interpretation [...] culture: RiskForSepsis-no oth srcURINE SOURCE: Clean Catch [id number] 08:08:00 Test Item Value Reference Range Interpretation Comments GLUBED (test code = 111 MG/DL 65-99 H Performe d by certified GLUBED) 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 DRUG OF ABUSE SCREEN [id number] 07:41:00 Test Item Value Reference Interpretation Comments [...] or infa nt custody issues. Negativ e [place] Level ng/ml ------- ----- Cocaine 300 Methamp hetamine (Ecstacy) 500 Cannabinoids (THC) 50 Amphetamine 1000 Barbiturate s 200 Benzodia zepines 200 Opiat es 300 Ph encyclidine (PCP) 25 - XR CHEST 1 [id number] 05:33:00 [facility] : 1965 Sex: M Patient Name: YESENIA BECKFORD Unit No: [id number] EXAMS: CPT CODE: [id number] XR CHEST 1 V 20946 Reason: chest pain PROCEDURE INFORMATION: Exam: XR [...] (0533)VRAD.VR Orig Print D/T: S: 09/07/2020 (0534) [facility] NAME: YESENIA BECKFORD [address] PHYS:ANGELINA.Rose Ceja,[place] [address] : 1965 AGE: 54 SEX: M LOC: [facility] PHONE #: [phone] EXAM DATE: 09/07/2020 STATUS: REG ER FAX #: RAD NO: DC Dt: PAGE 1 Signed ReportBASI METABOLIC [id number] 04:23:00 Test Item Value Reference Range Interpretation [...] 9.5 MG/DL 8.7-10.5 N CA) HEPATIC FUNCTION [id number] 04:23:00 Test Item Value Reference Range Interpretation [...] 50-136 N TOTAL (test code = ALKP) [id number] 04:23:00 Test Item Value Reference Range Interpretation Comments LIPASE (test code = LIP) 183 Units/L 73-393 N [id number] 04:23:00 Test Item Value Reference Range Interpretation Comments MAGNESIUM (test code = MAG) 1.9 MG/DL 1.8-2.4 N THYROID STIMULATING [id number] 04:23:00 Test Item Value Reference Range Interpretation Comments THYROID STIMULATING 5.20 0.42-5.47 N Micro-In ternational HORMONE (test code = TSH) Un its/LResults of this assay method ma y be falsely depress ed orelevated if p atient is taking high doses of Biotin. NT PRO-BRAIN NATRIURETIC [id number] 04:23:00 Test Item Value Reference Range Interpretation Comments NT PRO-BRAIN 40 PG/ML 0-125 N Results of this assay NATRIURETIC PEPTI (test meth od may be falsely code = PROBNP) depressed ore levated if patient is t aking high doses of B iotin. CPK-MB [id number] 04:23:00 Test Item Value Reference Range Interpretation Comments CK (test code = 239 Units/L 39-308 N CKT) CKMB (test code = 2.8 NG/ML 0.0-3.6 N CKMB sugge stive of CKMBT) non-AMI; MB Ind ex is not reported. [id number] 04:23:00 Test Item Value Reference Range Interpretation [...] is taking high dos es of Biotin. [id number] 04:23:00 Test Item Value Reference Range Interpretation Comments ALCOHOL (test code = 95 MG/DL 0-10 H 0 - 10: Should be ALC) interpreted as NEGATIVE. 11 - 50: None to mild euphoria. 51 - 100: Mild influence on vision and dark adapta tion. > 80: Legal intoxication; D epression of REAL ESTATE UNDERWRITER; Increasing degr ee of poisoning. > 400: Fatalities repo rted. Results are for medical purposes only a nd not forlegal or emp loyment evaluative purp oses. 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 Negativ e [place] Level ng/ml ------- ----- Cocaine 300 Methamp hetamine (Ecstacy) 500 Cannabinoids (THC) 50 Amphetamine 1000 Barbiturate s 200 Benzodia zepines 200 Opiat es 300 Ph encyclidine (PCP) 25 [id number] 21:34:00 Test Item Value Reference Range Interpretation Comments AMMONIA (test code = 24 UMOL/L 11-35 N Results of this assay AMM) method may be f alsely depressed orele vated if patient is taki ng sulfasalazine. BETA [id number] 20:37:00 Test Item Value Reference Range Interpretation Comments BETA HYDROXYBUTYRATE (test code = 0.33 mmol/L 0.02-0.27 H BETHYD) - CT HEAD/BRAIN W/O [id number] 20:25:00 Patient Name: YESENIA BECKFORD Unit No: [id number] EXAMS: CPT CODE: [id number] CT HEAD/BRAIN W/O CONT 53682 Reason: aguilar - CT HEAD/BRAIN W/O CONT [...] Print D/T: S: 03/02/2020 (2027) CTDI: DLP: [facility] NAME: YESENIA BECKFORD [address]: [place] [address] : 1965 AGE: 54 SEX: M LOC: [facility] PHONE #: [phone] EXAM DATE: 03/02/2020 STATUS: REG ER FAX [...] 50-136 N TOTAL (test code = ALKP) [id number] 20:14:00 Test Item Value Reference Range Interpretation Comments PHOSPHOROUS (test code = PHOS) 2.9 MG/DL 2.5-4.9 N [id number] 20:14:00 Test Item Value Reference Range Interpretation Comments MAGNESIUM (test code = MAG) 2.0 MG/DL 1.8-2.4 N [id number] 20:14:00 Test Item Value Reference Range Interpretation [...] is taking high dos es of Biotin. [id number] 20:14:00 Test Item Value Reference Range Interpretation Comments ALCOHOL (test code = < 3 MG/DL 0-10 N 0 - 10: Should be ALC) interpreted as NEGATIVE. 11 - 50: None to mild euphoria. 51 - 100: Mild influence on vision and dark adapta tion. > 80: Legal intoxication; D epression of REAL ESTATE UNDERWRITER; Increasing degr ee of poisoning. > 400: Fatalities repo rted. Results are for medical purposes only a nd not forlegal or emp loyment evaluative purp oses. CBC W/AUTO [id number] 19:01:00 Test Item Value Reference Range Interpretation [...] 0.0-0.2 N NRBC#) - XR CHEST 1 [id number] 18:53:00 Patient Name: YESENIA BECKFORD Unit No: [id number] EXAMS: CPT CODE: [id number] XR CHEST 1 V 76891 Reason: weakness - XR CHEST 1 V [...] (1852)tTYRAE Orig Print D/T: S: 03/02/2020 (1855) [facility] NAME: YESENIA BECKFORD [address]: [place] [address] : 1965 AGE: 54 SEX: M LOC: [facility] PHONE #: [phone] EXAM DATE: 03/02/2020 STATUS: REG ER FAX #: RAD NO: DC Dt: PAGE 1 Signed [id number] 18:26:00 Test Item Value Reference Range Interpretation Comments GLUBED (test code = 191 MG/DL 65-99 H Performe d by certified GLUBED) 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 - CT HEAD/BRAIN W/O [id number] 18:19:00 Patient Name: YESENIA BECKFORD Unit No: [id number] EXAMS: CPT CODE: [id number] CT HEAD/BRAIN W/O CONT [id number] Reason: Headache TECHNIQUE: Contiguous 5 mm images [...] Print D/T: S: 10/24/2019 (1821) CTDI: DLP: [facility] NAME: YESENIA BECKFORD [address]: Maximil[place] [address] : 1965 AGE: 53 SEX: M LOC: [facility] PHONE#: [phone] EXAM DATE: 10/24/2019 STATUS: REG ER FAX #: RAD NO: DC Dt: PAGE 1 Signed ReportCBC W/AUTO [id number] 18:10:00 Test Item Value Reference Range Interpretation [...] = 0.0 X10 3/uL 0.0-0.2 N NRBC#) [id number] 18:08:00 Test Item Value Reference Range Interpretation Comments GLUBED (test code = 106 MG/DL 65-99 H Performe d by certified GLUBED) 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 - XR FINGER(S) 2+V [id number] 06:53:00 Patient Name: YESENIA BECKFORD Unit No: [id number] EXAMS: CPT CODE: [id number] XR FINGER(S) 2+[place] [address] Reason: pain, injury PROCEDURE INFORMATION: Exam: XR [...] (0653)[id number].JUDAH Rouse Print D/T: S: 10/06/2019 (0653) [facility] NAME: YESENIA BECKFORD [address]: BOUDA.Ramu - [place] [address] : 1965 AGE:53 SEX: M LOC: [facility] PHONE #: [phone] EXAM DATE: 10/06/2019 STATUS: DEP ER FAX #: RAD NO: DC Dt: PAGE 1 Signed Report- XR L-SPINE 2/3 VIEWS 2019-10-06 06:45:00 Patient Name: YESENIA BECKFORD Unit No: [id number] EXAMS: CPT CODE: [id number] XR L-SPINE 2/3 VIEWS 51606 Reason: pain PROCEDURE INFORMATION: Exam: XR Lumbosacral [...] ([id number])ABRAHAM.VR Orig Print D/T: S: 10/06/2019 (0646) [facility] NAME: YESENIA BECKFORD [address]: BOUDA.Ramu - Shayne [place] [address] : 1965 AGE: 53 SEX: M LOC: [facility] PHONE #: [phone] EXAM DATE: 10/06/2019 STATUS: REG ER FAX #: RAD NO: DC Dt: PAGE 1 Signed [id number] 11:02:00 Test Item Value Reference Range Interpretation Comments GLUBED (test code = 176 MG/DL 65-99 H Performe d by certified GLUBED) 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 [id number] 08:07:00 Test Item Value Reference Range Interpretation Comments GLUBED (test code = 227 MG/DL 65-99 H Performe d by certified GLUBED) 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 UA RFLX MICROSCOPIC [id number] 07:43:00 Test Item Value Reference Range Interpretation [...] for culture: Dysuria/FrequencyURINE SOURCE: Clean CatchBASIC METABOLIC [id number] 07:24:00 Test Item Value Reference Range Interpretation [...] 9.6 MG/DL 8.7-10.5 N CA) HEPATIC FUNCTION [id number] 07:24:00 Test Item Value Reference Range Interpretation [...] 50-136 N TOTAL (test code = ALKP) [id number] 07:24:00 Test Item Value Reference Range Interpretation Comments LIPASE (test code = LIP) 165 Units/L 73-393 N CBC W/AUTO [id number] 07:05:00 Test Item Value Reference Range Interpretation [...] 3/uL 0.0-0.2 N NRBC#) UA RFLX MICROSCOPIC [id number] 02:01:00 Test Item Value Reference Range Interpretation [...] Suprapubic PainURINE SOURCE: Clean CatchUA RFLX MICROSCOPIC [id number] 01:57:00 Test Item Value Reference Range Interpretation [...] 65-99 H Performe d by certified GLUBED) 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
[2022-02-18] MEDS ORDERED: MORPHINE 2 MG/ML SYR ONE (11:20)
[2022-02-18] MEDS ORDERED: NA CHLORIDE 0.9% 1,000 ML ONE (11:20)
[2022-02-18] MEDS ORDERED: METOCLOPRAMIDE 10 MG/2mL INJ ONE (11:20)
[2022-02-18 12:02] LABS: Absolute Lymphocytes (CBC) 0.7 K/uL (0.7-4.9); Lymphocytes % 5.7 % (15.3-44.8); MPV 7.2 fL (7.6-11.3); RBC Red Blood Cell Count 4.54 M/uL (4.33-5.43)
[2022-02-18 12:09] LABS: Protime INR 1.04
[2022-02-18 12:17] LABS: Potassium 3.6 mmol/L (3.5-5.1)
--- NOTE | 2022-02-18 12:53 | RAD REPORT ---
EXAM DESCRIPTION: CT - Head Brain Wo Cont - 02/18/2022 12:37 pm CLINICAL HISTORY: Headache COMPARISON: None. TECHNIQUE: Computed axial tomography of the head was obtained. IV contrast was not requested. All CT scans are performed using dose optimization technique as appropriate and may include automated exposure control or mA/KV adjustment according to patient size. FINDINGS: An intracranial bleed is not seen . The ventricles are normal in caliber. No significant hypodense areas within the brain visualized No extra-axial fluid collection is noted. Right mastoids are opacified. IMPRESSION: No acute intracranial abnormality is seen. If patient's symptoms persist MRI of the bra in would be recommended. Opacifications of the right mastoids may indicate mastoiditis
--- NOTE | 2022-02-18 13:02 | RAD REPORT ---
EXAM DESCRIPTION: Luisana Angio02/18/2022 12:37 pm CLINICAL HISTORY: Headache COMPARISON: None TECHNIQUE: 50 cc Isovue 370 was administered intravenously. 3D MIP reconstruction performed All CT scans are performed using dose optimization technique as appropriate and may include automated exposure control or mA/KV adjustment according to patient size. FINDINGS: Mild plaque is present within common carotid, internal carotid and external carotid arteri es bilaterally The vertebral arteries are codominant. No dissection seen. No significant stenosis visualized IMPRESSION: Mild plaque within the carotid arteries NASCET criteria used. Mild 0-49% stenosis Moderate 50-69% stenosis Severe 70-99% stenosis
--- NOTE | 2022-02-18 13:04 | RAD REPORT ---
EXAM DESCRIPTION: CTHead angio02/18/2022 12:37 pm CLINICAL HISTORY: Headache COMPARISON: None TECHNIQUE: CT angiogram of the head was obtained. 3D MIPS reconstruction performed. All CT scans are performed using dose optimization technique as appropriate and may include automated exposure control or mA/KV adjustment according to patient size. FINDINGS: The basilar, internal carotid, anterior cerebral, middle cerebral and posterior cerebral a rteries are normal caliber. An aneurysm is not seen. A significant stenosis is not noted. IMPRESSION: No acute abnormality is displayed
[2022-02-18 13:23] LABS: Barbiturates NEGATIVE (NEGATIVE); Benzodiazepines NEGATIVE (NEGATIVE); Cocaine NEGATIVE (NEGATIVE); METHAMPHETAM NEGATIVE (NEGATIVE); Methadone NEGATIVE (NEGATIVE); Opiates NEGATIVE (NEGATIVE); Phencyclidine NEGATIVE (NEGATIVE); THC Cannibis NEGATIVE (NEGATIVE)
--- NOTE | 2022-02-18 13:58 | ER ---
Nurse's Notes [facility] Name: Trenton Velasquez Age: 56 yrs Sex: Male : 1965 Arrival Date: 02/18/2022 Time: 11:01 Bed 17 Private MD: Diagnosis: Headache;Acute mastoiditis Presentation: 02/18 11:03 Chief complaint: Patient states: Headache that began at 0730 this morning. Coronavirus ss screen: Client denies travel out of the [place] in the last 14 days. Ebola Screen: Patient denies exposure to infectious person. Patient denies travel to an Ebola-affected area in the 21 days before illness onset. Initial Sepsis Screen: Does the patient meet any 2 criteria? No. Patient's initial sepsis screen is negative. Does the patient have a suspected source of infection? No. Patient's initial sepsis screen is negative. Risk Assessment: Do you want to hurt yourself or someone else? Patient reports no desire to harm self or others. Onset of symptoms was February 18, 2022 at 07:30. Care prior to arrival: Medication(s) given: LR 200 mL IV initiated. 20 GA, in the right hand, Glucose check: 110. 11:03 Method Of Arrival: EMS: [facility] ss 11:03 Acuity: GIOVANNA 3 ss Triage Assessment: 11:10 Headache History: The patient has had previous headaches and this one is more severe vg1 than previous episodes. Historical: - PMHx: 11:04 diabetes mellitus; ss - Family history:: not pertinent. - Hospitalizations: : No recent hospitalization is reported. Screenin:12 Abuse screen: Denies threats or abuse. Denies injuries from another. Nutritional ss screening: No deficits noted. Tuberculosis screening: Never had TB. VAN Screening: Arm Drift: Patient shows no arm weakness. Visual Disturbance: No visual disturbance noted. Aphasia: No aphasia noted. Neglect: No neglect noted. Fall Risk None identified. Assessment: 11:10 General: Appears uncomfortable, Behavior is crying, drowsy. Pain: Complains of pain in vg1 head Pain currently is 10 out of 10 on a pain scale. Pain began 'this morning around 0800' Also complains of nausea, photophobia. Neuro: Malcolm Agitation-Sedation Scale (RASS): -1 Drowsy Level of Consciousness is awake, alert, obeys commands, Oriented to person, place, time, situation, Sexual Assault Social Worker are equal bilaterally Moves all extremities. Gait is unable to assess at this time. Speech is normal, Facial symmetry appears normal. Cardiovascular: Patient's skin is warm and dry. Respiratory: Airway is patent Respiratory effort is even, unlabored. GI: Abdomen is flat, Reports nausea. : No signs and/or symptoms were reported regarding the genitourinary system. EENT: No signs and/or symptoms were reported regarding the EENT system. Derm: Skin is intact, is healthy with good turgor. Musculoskeletal: Circulation, motion, and sensation intact. 12:10 Reassessment: Patient appears in no apparent distress at this time. No changes from vg1 previously documented assessment. Patient and/or family updated on plan of care and expected duration. Pain level reassessed. Patient is alert, oriented x 3, equal unlabored respirations, skin warm/dry/pink. 13:00 Reassessment: Patient appears in no apparent distress at this time. Patient and/or vg1 family updated on plan of care and expected duration. Pain level reassessed. Patient is alert, oriented x 3, equal unlabored respirations, skin warm/dry/pink. Patient states feeling better. 14:29 Reassessment: Patient appears in no apparent distress at this time. Patient and/or vg1 family updated on plan of care and expected duration. Pain level reassessed. Patient is alert, oriented x 3, equal unlabored respirations, skin warm/dry/pink. rates headache 4/10 Patient states feeling better. Vital Signs: 11:11 BP 119 / 87; Pulse 89; Resp 16; Temp 98.7(O); Pulse Ox 98% on R/A; Weight 86.18 kg; Height 5 ft. 11 in. (180.34 cm); Pain 0/10; 12:00 BP 117 / 84; Pulse 90; Resp 14; Pulse Ox 98% on R/A; vg1 11:11 Body Mass Index 26.50 (86.18 kg, 180.34 cm) Adrian Coma Score: 13:56 Eye Response: spontaneous(4). Verbal Response: oriented(5). Motor Response: obeys rn commands(6). Total: 15. NIH Stroke Scale Scores: 11:12 NIHSS Score: 0 ss ED Course: 11:01 Patient arrived in ED. rn 11:01 Aly Alanis MD is Attending Physician. rn 11:04 Triage completed. ss 11:04 Arm band placed on right wrist. ss 11:06 Sanjuanita Marcum, LAUREN is Primary Nurse. vg1 11:10 No provider procedures requiring assistance completed. Maintain EMS IV. Dressing vg1 intact. Site clean \T\ dry. Gauge \T\ site: 20 g R forearm. Flushed right forearm with 5 ml normal saline. 11:12 Patient has correct armband on for positive identification. Bed in low position. Call ss light in reach. Side rails up X2. Client placed on continuous cardiac and pulse oximetry monitoring. NIBP monitoring applied. 12:39 CT Head Brain wo Cont In Process Unspecified. EDMS 12:39 CT Head Angio In Process Unspecified. EDMS 12:39 CT Neck Angio In Process Unspecified. EDMS 14:30 IV discontinued, intact, bleeding controlled, No redness/swelling at site. Pressure vg1 dressing applied. Administered Medications: 11:25 Drug: morphine 2 mg Route: IVP; Infused Over: 4 mins; Site: right forearm; vg1 12:56 Follow up: Response: No adverse reaction; No change in condition vg1 11:30 Drug: NS 0.9% 1000 ml Route: IV; Rate: 1000 ml; Site: right forearm; vg1 12:56 Follow up: IV Status: Completed infusion; IV Intake: 1000ml vg1 11:30 Drug: Reglan (metoCLOPramide) 10 mg Route: IVP; Site: right forearm; vg1 12:56 Follow up: Response: No adverse reaction; Marked relief of symptoms vg1 13:51 CANCELLED (Duplicate Order): NS 0.9% 1000 ml IV at 1000 ml once rn 14:16 Drug: Rocephin (cefTRIAXone) 1 grams Route: IV; Rate: calculated rate; Site: right vg1 forearm; 14:29 Follow up: IV Status: Completed infusion vg1 14:16 Drug: Clindamycin 300 mg Route: PO; vg1 14:30 Follow up: Response: Medication administered at discharge. vg1 Medication: 11:10 VIS not applicable for this client. vg1 Intake: 12:56 IV: 1000ml; Total: 1000ml. vg1 Outcome: 13:58 Discharge ordered by . rn 14:30 Discharged to home ambulatory. vg1 14:30 Condition: good 14:30 Discharge instructions given to patient, Instructed on discharge instructions, follow up and referral plans. medication usage, Demonstrated understanding of instructions, follow-up care, medications, Prescriptions given X 2. 14:30 Patient left the ED. vg1 NIH Stroke Scale - NIH Stroke Score Date: 02/18/2022 Time: 11:12 Total Score = 0 1a. Level of Consciousness (LOC) - 0(Alert) 1b. Level of Consciousness (LOC) (Month \T\ Age) - 0(Both) 1c. LOC Commands (Open \T\ Closes Eyes/Mercury Cell Cleaner) - 0(Both) 2. Best Gaze (Lateral Gaze Paresis) - 0(Normal) 3. Visual Field Loss - 0(No visual loss) 4. Facial Palsy - 0(Normal) 5a. Left Arm: Motor (10-second hold) - 0(No drift) 5b. Right Arm: Motor (10-second hold) - 0(No drift) 6a. Left Leg: Motor (5-second hold - always test supine) - 0(No drift) 6b. Right Leg: Motor (5-second hold - always test supine) - 0(No drift) 7. Limb Ataxia (finger/nose \T\ heel/champagne - test with eyes open) - 0(Absent) 8. Sensory Loss (pinprick arms/legs/face) - 0(Normal) 9. Best Language: Aphasia (description/naming/reading) - 0(No aphasia) 10. Dysarthria (speech clarity - read or repeat words) - 0(Normal) 11. Extinction and Inattention (visual/tactile/auditory/spatial/personal) - 0(No abnormality) Initials: Signatures: Dispatcher [employer] Aly Swan MD MD rn Smirch, Shelby, RN RN ss Garcia, Victoria, RN RN vg1
--- NOTE | 2022-02-18 13:58 | EDPHYS ---
Physician Documentation [facility] Name: Trenton Velasquez Age: 56 yrs Sex: Male : 1965 Arrival Date: 02/18/2022 Time: 11:01 Bed 17 Private MD: ED Physician Aly Alanis HPI: 02/18 12:11 This 56 yrs old Male presents to ER via EMS with complaints of Headache. rn 12:11 The patient complains of pain to the back of head. The patient describes the headache rn as throbbing. Onset: The symptoms/episode began/occurred this morning. Associated signs and symptoms: Pertinent negatives: altered mental status, dizziness, fever, neck stiffness, paresthesias, Photophobia rash, vision loss, vomiting, weakness, vertigo. Severity of symptoms: At its worst the pain was moderate, in the emergency department the pain is unchanged. Headache History: Denies prior headaches. The symptoms are alleviated by nothing. the symptoms are aggravated by nothing. The patient has not experienced similar symptoms in the past. The patient has not recently seen a physician. Pt woke up fine today, went to work, . Historical: - PMHx: 11:04 diabetes mellitus; ss - Family history:: not pertinent. - Hospitalizations: : No recent hospitalization is reported. ROS: 12:27 Constitutional: Negative for fever, chills, and weight loss, Eyes: Negative for injury, rn pain, redness, and discharge, Neck: Negative for injury, pain, and swelling, Cardiovascular: Negative for chest pain, palpitations, and edema, Respiratory: Negative for shortness of breath, cough, wheezing, and pleuritic chest pain, Abdomen/GI: Negative for abdominal pain, nausea, vomiting, diarrhea, and constipation, Back: Negative for injury and pain, MS/Extremity: Negative for injury and deformity, Skin: Negative for injury, rash, and discoloration, Neuro: + headache and generalized weakness Exam: 12:27 Constitutional: This is a well developed, well nourished patient who is awake, rn somnolent, sitting upright in stretcher Head/Face: Normocephalic, atraumatic. Eyes: Pupils equal round and reactive to light, extra-ocular motions intact. Periorbital areas with no swelling, redness, or edema. ENT: dry MM Neck: Trachea midline, no masses palpated, and no cervical lymphadenopathy. Supple, full range of motion without nuchal rigidity, or vertebral point tenderness. No Meningismus. Cardiovascular: Regular rate and rhythm. No pulse deficits. Respiratory: No increased work of breathing, no retractions or nasal flaring. Abdomen/GI: Soft, non-tender Skin: Warm, dry, no rash MS/ Extremity: Pulses equal, no cyanosis. Neuro: Awake, GCS 15, oriented to person, place, time, and situation. Cranial nerves II-XII grossly intact. Motor strength 5/5 in all extremities. Sensory grossly intact. Cerebellar exam normal. Vital Signs: 11:11 BP 119 / 87; Pulse 89; Resp 16; Temp 98.7(O); Pulse Ox 98% on R/A; Weight 86.18 kg; ss Height 5 ft. 11 in. (180.34 cm); Pain 0/10; 12:00 BP 117 / 84; Pulse 90; Resp 14; Pulse Ox 98% on R/A; vg1 11:11 Body Mass Index 26.50 (86.18 kg, 180.34 cm) NIH Stroke Scale Scores: 11:12 NIHSS Score: 0 ss Adrian Coma Score: 13:56 Eye Response: spontaneous(4). Verbal Response: oriented(5). Motor Response: obeys rn commands(6). Total: 15. MDM: 11:01 Patient medically screened. rn 13:56 Differential diagnosis: hypertensive headache, intracerebral hemorrhage, migraine, rn neoplasm, subarachnoid bleed, tension headache, vasomotor headache, mastoiditis. Data reviewed: vital signs, nurses notes, lab test result(s), radiologic studies, CT scan, and as a result, I will discharge patient. Counseling: I had a detailed discussion with the patient and/or guardian regarding: the historical points, exam findings, and any diagnostic results supporting the discharge/admit diagnosis, lab results, radiology results, the need for outpatient follow up, to return to the emergency department if symptoms worsen or persist or if there are any questions or concerns that arise at home. Response to treatment: the patient's symptoms have mildly improved after treatment, and as a result, I will discharge patient. Special discussion: I discussed with the patient/guardian in detail that at this point there is no indication for admission to the hospital. It is understood, however, that if the symptoms persist or worsen the patient needs to return immediately for re-evaluation. Based on the history and exam findings, there is no indication for further emergent testing or inpatient evaluation. I discussed with the patient/guardian the need to see the primary care provider for further evaluation of the symptoms. ED course: Pt improved states pain better, stable vitals, CTA head/neck no acute findings other than possible mastoiditis. Pt reports pain in that region. Will dc home with abx and return precautions. Pt states wants to go back to work, feels better. . 02/18 11:08 Order name: CBC with Diff; Complete Time: 12:27 rn 02/18 11:08 Order name: Basic Metabolic Panel; Complete Time: 12:27 rn 02/18 11:08 Order name: Protime (+inr); Complete Time: 12:27 rn 02/18 11:08 Order name: Ptt, Activated; Complete Time: 12:27 rn 02/18 11:08 Order name: Urine Drug Screen; Complete Time: 13:30 rn 02/18 11:07 Order name: CT Head Brain wo Cont; Complete Time: 13:30 rn 02/18 11:07 Order name: CT Head Angio; Complete Time: 13:30 rn 02/18 11:07 Order name: CT Neck Angio; Complete Time: 13:30 rn 02/18 11:08 Order name: IV Start; Complete Time: 11:53 rn 02/18 11:08 Order name: Cardiac monitoring; Complete Time: 11:53 rn 02/18 11:08 Order name: O2 Sat Monitoring; Complete Time: 11:53 rn Administered Medications: 11:25 Drug: morphine 2 mg Route: IVP; Infused Over: 4 mins; Site: right forearm; vg1 12:56 Follow up: Response: No adverse reaction; No change in condition vg1 11:30 Drug: NS 0.9% 1000 ml Route: IV; Rate: 1000 ml; Site: right forearm; vg1 12:56 Follow up: IV Status: Completed infusion; IV Intake: 1000ml vg1 11:30 Drug: Reglan (metoCLOPramide) 10 mg Route: IVP; Site: right forearm; vg1 12:56 Follow up: Response: No adverse reaction; Marked relief of symptoms vg1 13:51 CANCELLED (Duplicate Order): NS 0.9% 1000 ml IV at 1000 ml once rn 14:16 Drug: Rocephin (cefTRIAXone) 1 grams Route: IV; Rate: calculated rate; Site: right vg1 forearm; 14:29 Follow up: IV Status: Completed infusion vg1 14:16 Drug: Clindamycin 300 mg Route: PO; vg1 14:30 Follow up: Response: Medication administered at discharge. 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 Level of Consciousness (LOC) - 0(Alert) 1b. Level of Consciousness (LOC) (Month \T\ Age) - 0(Both) 1c. LOC Commands (Open \T\ Closes Eyes/Health And Wellness Instructor) - 0(Both) 2. Best Gaze (Lateral Gaze Paresis) - 0(Normal) 3. Visual Field Loss - 0(No visual loss) 4. Facial Palsy - 0(Normal) 5a. Left Arm: Motor (10-second hold) - 0(No drift) 5b. Right Arm: Motor (10-second hold) - 0(No drift) 6a. Left Leg: Motor (5-second hold - always test supine) - 0(No drift) 6b. Right Leg: Motor (5-second hold - always test supine) - 0(No drift) 7. Limb Ataxia (finger/nose \T\ heel/champagne - test with eyes open) - 0(Absent) 8. Sensory Loss (pinprick arms/legs/face) - 0(Normal) 9. Best Language: Aphasia (description/naming/reading) - 0(No aphasia) 10. Dysarthria (speech clarity - read or repeat words) - 0(Normal) 11. Extinction and Inattention (visual/tactile/auditory/spatial/personal) - 0(No abnormality) Initials: ss Signatures: Dispatcher [employer] EDMS Aly Alanis MD MD rn Smirch, Shelby, RN RN ss Garcia, Victoria RN RN vg1 Corrections: (The following items were deleted from the chart) 13:51 13:50 NS 0.9% 1000 ml IV at 1000 ml once ordered. rn rn 13:52 13:51 HEPATIC FUNCTION+C.LAB.BRZ ordered. EDMS EDMS
[2022-02-18] MEDS ORDERED: CEFTRIAXONE 1000 MG/VIAL ONE (14:23)
[2022-02-18 14:47] VITALS: TEMP 98.7; O2SAT 98
[2022-02-18 14:49] VITALS: BP 117/84
--- NOTE | 2022-02-19 08:09 | EKG ---
Test Date: 2022-02-18 Test Time: 11:31:23 Eyeglass Cutter: BHUPENDRA MEASUREMENT RESULTS: Intervals: Rate: 90 WA: 182 QRSD: 96 QT: 346 QTc: 423 Whipple: P: 84 WA: 182 QRS: -53 T: 54 INTERPRETIVE STATEMENTS: Sinus rhythm with occasional premature ventricular complexes Pulmonary disease pattern Left anterior fascicular block Abnormal ECG No previous ECG available for comparison Electronically Signed On 02-19-22 08:05:42 CDT by Navarro Schwarz
== END 2022-02-18 14:30 | disposition home or self-care (01) ==
LOC: ER 10:57
DX: R51.9 Headache, unspecified (principal); H70.009 Acute mastoiditis without complications, unspecified ear; E11.9 Type 2 diabetes mellitus without complications
CPT/HCPCS: 36415; 70450; 70496; 70498; 80048; 80307; 85025; 85610; 85730; 93005; 96361; 96374; 96375; 99284; J2270; J2765; J7030; Q9967